=== PATIENT | male | born 1945 | race Caucasian/White ===

== ENCOUNTER → 2016-05-29 | Outpatient (CLI) | payer OTHER ==
--- NOTE | 2016-05-29 10:20 | MR ---
EXAMINATION TYPE: MR cervical spine wo/w con DATE OF EXAM: 05/29/2016 9:11 AM COMPARISON: NONE HISTORY: cervicalgia, numbness back of head TECHNIQUE: Multiplanar, multisequence images of the cervical spine were acquired utilizing 15 mL intravenous Mul tiHance gadolinium contrast. Diffusion weighted imaging was performed. There is reversal of the normal cervical lordosis extending from C2-3 through C5-6. C2-C3: No evidence for degenerative disc disease. No disc bulge/herniation or protrusion. No Canal stenosis. Foramina are patent bilaterally. C3-C4: Moderate disc desiccation. Posterior disc bulge noted. No evidence for herniation or central s tenosis. Degenerative change of the cervical apophyseal joints resulting in mild bilateral foraminal encroachment. C4-C5: Moderate to severe disc desiccation. Posterior disc bulge with encapsulating spur resulting in mild central stenosis. Bilateral foraminal encroachment identified. C5-C6: Moderate to severe disc desiccation. Posterior disc bulge with encapsulating spur resulting in moderate central stenosis. Bilateral foraminal encroachment identified. C6-C7: Moderate to severe disc desiccation. Posterior disc bulge with encapsulating spur resulting in moderate central stenosis. Bilateral foraminal encroachment identified. C7-T1: No evidence for degenerative disc disease. No disc bulge/herniation or protrusion. No Canal stenosis. Foramina are patent bilaterally. Cervical segments are intact. No pathologic enhancement seen. Moderate ventral spondylosis. Cervical spinal cord is of normal signal. Craniovertebral junction relationships are within normal limits. IMPRESSION: 1. Multilevel degenerative disc disease. 2. Disc endplate complex resulting in central stenosis at C4-5, C5-6 and C6-7. Associated foraminal e ncroachment.
== END | disposition home or self-care (01) ==
LOC: RADMRIMAIN 07:43
PROVIDERS: ATTEND Physician Assistant Medical
DX: M48.02 Spinal stenosis, cervical region (principal); M50.30 Other cervical disc degeneration, unspecified cervical region
CPT/HCPCS: 72156; A9577

== ENCOUNTER 2019-01-10 11:47 | Day surgery (SDC) | payer OTHER ==
[2019-01-05 09:07] VITALS: BMI 23.1
[~2019-01-10 11:47] MED LIST: LACTATED RINGERS 1,000 ML IV SCH
[2019-01-10 12:20] VITALS: TEMP 97.6
[2019-01-10] MEDS ORDERED: PROPOFOL 10 MG/ML 20 ML VIAL IV ONE (13:32)
--- NOTE | 2019-01-10 14:12 | P.PCN ---
Date of Procedure: 01/10/19 Description of Procedure: BRIEF HISTORY: Patient is a 73-year-old pleasant male scheduled for an elective colonoscopy as a part of evaluation of altered bowel function. Patient reports altered bowel function over the past few months. He describes increased frequency of bowel movements as well as loose bowel movements and urgency with bowel movement. No blood per rectum or black tarry stools reported. Last colonoscopy 5 years ago significant for polyps. No family history of colon cancer. He does occasionally wake up and have bowel movements. PROCEDURE PERFORMED: Colonoscopy with polypectomy. PREOPERATIVE DIAGNOSIS: Altered bowel function, last colonoscopy 5 years ago and significant for polypectomy. ESTIMATED BLOOD LOSS: Minimal. IV sedation per Anesthesia. PROCEDURE: After informed consent was obtained, the patient, was brought into the endoscopy unit. IV sedation was administered by Anesthesia under continuous monitoring. Digital rectal examination was normal. Initially the Olympus CF-190 flexible video colonoscope was then inserted in the rectum, gradually advanced into the cecum without any difficulty. Careful examination was performed as the scope was gradually being withdrawn. Ileocecal valve and the appendiceal orifice were visualized and appeared normal. Prep was good with some liquid stool in the right colon which was lavaged. Mucosa of the cecum, ascending colon, transverse colon, descending colon, sigmoid colon, and rectum appeared normal. A few scattered left colonic diverticula noted. Retroflexion was performed in the rectum and no lesions were seen. The patient tolerated the procedure well. IMPRESSION: Mild sigmoid diverticulosis. Normal-appearing colon from rectum to cecum with random biopsies taken of the right and left colon to rule out microscopic colitis. RECOMMENDATIONS: Findings of this examination were discussed with the patient and his daughter. Okay to resume diet. Okay to resume medications and warfarin therapy. Await pathology from biopsies. Follow up in gastroenterology clinic as previously sc heduled. Repeat colonoscopy would be in 5 years for personal history of colon polyps and the patient is medically stable for repeat endoscopy at that time.
[2019-01-10 14:26] VITALS: BP 166/78; PULSE 79; RESP 18
== END 2019-01-10 14:40 | disposition home or self-care (01) ==
LOC: ORWHC2ENDO 11:47
PROVIDERS: ATTEND Internal Medicine
DX: K57.30 Diverticulosis of large intestine without perforation or abscess without bleeding (principal); I10 Essential (primary) hypertension; I48.91 Unspecified atrial fibrillation; G47.33 Obstructive sleep apnea (adult) (pediatric); J44.9 Chronic obstructive pulmonary disease, unspecified; F41.9 Anxiety disorder, unspecified; F32.9 Major depressive disorder, single episode, unspecified; Z80.0 Family history of malignant neoplasm of digestive organs; Z87.891 Personal history of nicotine dependence; Z79.01 Long term (current) use of anticoagulants; Z79.1 Long term (current) use of non-steroidal anti-inflammatories (NSAID); Z79.899 Other long term (current) drug therapy; Z79.51 Long term (current) use of inhaled steroids; Z98.890 Other specified postprocedural states; Z88.7 Allergy status to serum and vaccine; Z85.840 Personal history of malignant neoplasm of eye
CPT/HCPCS: 45380; 88305

== ENCOUNTER 2019-04-11 20:51 | Emergency (ER) | payer OTHER ==
[2019-04-11] MEDS ORDERED: SODIUM CHLORIDE 0.9% 1,000 ML IV STA (20:56)
--- NOTE | 2019-04-11 20:56 | ED ---
Syncope HPI - General Stated Complaint: Syncope Time Seen by Provider: 04/11/19 20:54 Source: RN notes reviewed, old records reviewed - History of Present Illness Initial Comments: This is a 73-year-old male, who presents today for evaluation regarding a syncopal event patient unsure of events surrounding syncopal episode 51 to the bathroom and then was found by EMS to be brought to the ER patient does drink daily and does admit to drinking TONIGHT states he was at the bar with his girlfriend when this event happened. Patient states he did drink some beer tonight denying any headache chest pain shortness with abdominal pain. Patient at this time states he has no complaints MD Complaint: loss of consciousness -: days(s) Prodromal Symptoms: none -: minutes(s) Witnessed: yes - by bystander, yes - by EMS Injuries Sustained Associated with Event: None Current Symptoms: back to baseline History: other (alcohol use disorder) Context: at rest Treatments Prior to Arrival: none - Related Data Home Medications Medication Instructions Recorded Confirmed Tamsulosin HCl [Flomax] 0.4 mg PO DAILY 03/30/15 01/05/19 Diltiazem HCl [Diltiazem 24Hr ER] 120 mg PO QAM 01/16/16 01/05/19 Warfarin [Coumadin] 2 mg PO HS 01/16/16 01/05/19 Albuterol Inhaler [Ventolin Hfa 1 - 2 puff INHALATION RT-Q6H PRN 01/05/19 01/05/19 Inhaler] Calcium Polycarbophil [Fibercon] 625 mg PO DAILY 01/05/19 01/05/19 Ibuprofen [Motrin] 600 mg PO Q8HR PRN 01/05/19 01/05/19 Ipratropium-Albuterol Nebulize 3 ml INHALATION RT-QID PRN 01/05/19 01/05/19 [Duoneb 0.5 mg-3 mg/3 ml Soln] hydrOXYzine HCL [Atarax] 25 mg PO DAILY 01/05/19 01/05/19 Previous Rx's Medication Instructions Recorded Lisinopril [Zestril] 5 mg PO DAILY #0 01/18/16 Budesonide/Formoterol Fumarate 1 puff IH BID #1 hfa.aer.ad 01/31/16 [Symbicort 160-4.5 Mcg Inhaler] Allergies Allergy/AdvReac Type Severity Reaction Status Date / Time pneumococcal vaccine Allergy Swelling Verified 01/10/19 12:11 AT SITE OF INJECTION Review of Systems ROS Statement: Those systems with pertinent positive or pertinent negative responses have been documented in the HPI. ROS Other: All systems not noted in ROS Statement are negative. 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 History of Any Multi-Drug Resistant Organisms: MRSA Date of last positivie culture/infection: 01/17/16 MDRO Source:: SHOULDER Past Surgical History: Heart Catheterization, Orthopedic Surgery Additional Past Surgical History / Comment(s): 6 R shoulder surgeries, 2 L shoulder surgeries, R eye surgery for cancer 01-17-12-enucleation and has prosthetic, colonoscopy, L eye cataract removal. Past Anesthesia/Blood Transfusion Reactions: No Reported Reaction Smoking Status: Former smoker - Past Family History Brother(s) History Unknown: Yes Family Medical History: Cancer Additional Family Medical History / Comment(s): esophageal, Mother Family Medical History: Renal Disease Additional Family Medical History / Comment(s): Mother at the age of 75yrs. General Exam General appearance: alert, in no apparent distress Head exam: Present: atraumatic, normocephalic, normal inspection Eye exam: Present: normal appearance, PERRL, EOMI. Absent: scleral icterus, conjunctival injection, periorbital swelling ENT exam: Present: normal exam, mucous membranes moist Neck exam: Present: normal inspection. Absent: tenderness, meningismus, lymphadenopathy Respiratory exam: Present: normal lung sounds bilaterally. Absent: respiratory distress, wheezes, rales, rhonchi, stridor Cardiovascular Exam: Present: regular rate, normal rhythm, normal heart sounds. Absent: systolic murmur, diastolic murmur, rubs, gallop, clicks GI/Abdominal exam: Present: soft, normal bowel sounds. Absent: distended, tenderness, guarding, rebound, rigid Extremities exam: Present: normal inspection, full ROM, normal capillary refill. Absent: tenderness, pedal edema, joint swelling, calf tenderness Back exam: Present: normal inspection Neurological exam: Present: alert, oriented X3, CN II-XII intact Psychiatric exam: Present: normal affect, normal mood Skin exam: Present: warm, dry, intact, normal color. Absent: rash Course Vital Signs 04/11/19 04/11/19 04/11/19 20:53 20:55 21:00 Temperature 97.5 F L Pulse Rate 53 L 60 Respiratory 18 17 Rate Blood Pressure 136/107 136/107 O2 Sat by Pulse 93 L 99 98 Oximetry 04/11/19 04/11/19 04/11/19 21:30 22:00 22:40 Temperature 97.5 F L Pulse Rate 43 L 56 L 66 Respiratory 18 16 20 Rate Blood Pressure 117/80 95/67 130/90 O2 Sat by Pulse 99 99 Oximetry - Reevaluation(s) Reevaluation #1: Medical record is reviewed Patient here in the ER is feeling better with rest and hydration. Before patient family to keep him for the syncopal event he states he thinks he does drink too much Alcohol tonight and would prefer discharged home EKG Findings - EKG Comments: EKG Findings:: EKG shows A. fib rate of 61, QRS 90, QTc 450 Medical Decision Making - Medical Decision Making 70 female presents to ER after having dinner with girlfriend and had a syncopal episode patient admits alcohol use today does appear dehydrated feels better here in the ER after some rest and some IV hydration. Patient prefer discharged home - Lab Data Result diagrams: 04/11/19 20:59 04/11/19 20:59 Lab Results 04/11/19 04/11/19 04/11/19 Range/Units 20:59 20:59 20:59 WBC 6.0 (3.8-10.6) k/uL RBC 4.42 (4.30-5.90) m/uL Hgb 14.5 (13.0-17.5) gm/dL Hct 42.8 (39.0-53.0) % MCV 97.0 (80.0-100.0) fL MCH 32.8 (25.0-35.0) pg MCHC 33.8 (31.0-37.0) g/dL RDW 12.7 (11.5-15.5) % Plt Count 153 (150-450) k/uL Neutrophils % 42 % Lymphocytes % 40 % Monocytes % 11 % Eosinophils % 2 % Basophils % 1 % Neutrophils # 2.5 (1.3-7.7) k/uL Lymphocytes # 2.4 (1.0-4.8) k/uL Monocytes # 0.7 (0-1.0) k/uL Eosinophils # 0.1 (0-0.7) k/uL Basophils # 0.0 (0-0.2) k/uL Sodium 129 L (137-145) mmol/L Potassium 5.2 H (3.5-5.1) mmol/L Chloride 96 L (98-107) mmol/L Carbon Dioxide 20 L (22-30) mmol/L Anion Gap 13 mmol/L BUN 17 (9-20) mg/dL Creatinine 0.67 (0.66-1.25) mg/dL Est GFR (CKD-EPI)AfAm >90 (>60 ml/min/1.73 sqM) Est GFR (CKD-EPI)NonAf >90 (>60 ml/min/1.73 sqM) Glucose 102 H (74-99) mg/dL POC Glucose (mg/dL) (75-99) mg/dL POC Glu German Professor ID Calcium 8.4 (8.4-10.2) mg/dL Phosphorus 3.9 (2.5-4.5) mg/dL Magnesium 2.0 (1.6-2.3) mg/dL Total Bilirubin 1.1 (0.2-1.3) mg/dL AST 57 (17-59) U/L ALT 53 H (4-49) U/L Alkaline Phosphatase 89 (38-126) U/L Troponin I 0.013 (0.000-0.034) ng/mL NT-Pro-B Natriuret Pep pg/mL Total Protein 7.5 (6.3-8.2) g/dL Albumin 3.9 (3.5-5.0) g/dL Urine Color Urine Appearance (Clear) Urine pH (5.0-8.0) Ur Specific [place] (1.001-1.035) Urine Protein (Negative) Urine Glucose (UA) (Negative) Urine Ketones (Negative) Urine Blood (Negative) Urine Nitrite (Negative) Urine Bilirubin (Negative) Urine Urobilinogen (<2.0) mg/dL Ur Leukocyte Esterase (Negative) 04/11/19 04/11/19 04/11/19 Range/Units 20:59 21:00 21:01 WBC (3.8-10.6) k/uL RBC (4.30-5.90) m/uL Hgb (13.0-17.5) gm/dL Hct (39.0-53.0) % MCV (80.0-100.0) fL MCH (25.0-35.0) pg MCHC (31.0-37.0) g/dL RDW (11.5-15.5) % Plt Count (150-450) k/uL Neutrophils % % Lymphocytes % % Monocytes % % Eosinophils % % Basophils % % Neutrophils # (1.3-7.7) k/uL Lymphocytes # (1.0-4.8) k/uL Monocytes # (0-1.0) k/uL Eosinophils # (0-0.7) k/uL Basophils # (0-0.2) k/uL Sodium (137-145) mmol/L Potassium (3.5-5.1) mmol/L Chloride (98-107) mmol/L Carbon Dioxide (22-30) mmol/L Anion Gap mmol/L BUN (9-20) mg/dL Creatinine (0.66-1.25) mg/dL Est GFR (CKD-EPI)AfAm (>60 ml/min/1.73 sqM) Est GFR (CKD-EPI)NonAf (>60 ml/min/1.73 sqM) Glucose (74-99) mg/dL POC Glucose (mg/dL) 101 H (75-99) mg/dL POC Glu German Professor ID Ceci Nevarez Calcium (8.4-10.2) mg/dL Phosphorus (2.5-4.5) mg/dL Magnesium (1.6-2.3) mg/dL Total Bilirubin (0.2-1.3) mg/dL AST (17-59) U/L ALT (4-49) U/L Alkaline Phosphatase (38-126) U/L Troponin I (0.000-0.034) ng/mL NT-Pro-B Natriuret Pep 448 pg/mL Total Protein (6.3-8.2) g/dL Albumin (3.5-5.0) g/dL Urine Color Yellow Urine Appearance Clear (Clear) Urine pH 6.0 (5.0-8.0) Ur Specific [place] 1.021 (1.001-1.035) Urine Protein Trace H (Negative) Urine Glucose (UA) Negative (Negative) Urine Ketones Trace H (Negative) Urine Blood Negative (Negative) Urine Nitrite Negative (Negative) Urine Bilirubin Negative (Negative) Urine Urobilinogen 2.0 (<2.0) mg/dL Ur Leukocyte Esterase Negative (Negative) - Radiology Data Radiology results: report reviewed (CT brain C-spine and chest and pelvis x-ray negative for traumatic disease), image reviewed Disposition Clinical Impression: Syncope, Alcohol use, Dehydration Disposition: HOME SELF-CARE Condition: Good Instructions (If sedation given, give patient instructions): Dehydration (ED), Syncope (ED) Is patient prescribed a controlled substance at d/c from ED?: No Referrals: [facility],Clinic [Primary Care Provider] - 1-2 days
[2019-04-11 21:03] VITALS: TEMP 97.5
[2019-04-11 21:03] LABS: Glucose,Whole Blood 101 mg/dL (75-99)
[2019-04-11 21:22] LABS: Basophils % (A) 1 %; Eosinophils # (A) 0.1 k/uL (0-0.7); Eosinophils % (A) 2 %; HCT 42.8 % (39.0-53.0); HGB 14.5 gm/dL (13.0-17.5); Lymphocytes # (A) 2.4 k/uL (1.0-4.8); Lymphocytes % (A) 40 %; MCH 32.8 pg (25.0-35.0); MCHC 33.8 g/dL (31.0-37.0); Mean Platelet Volume 9.3; Monocytes # (A) 0.7 k/uL (0-1.0); Monocytes % (A) 11 %; Neutrophils # (A) 2.5 k/uL (1.3-7.7); Neutrophils % (A) 42 %; Platelet Count 153 k/uL (150-450); RBC 4.42 m/uL (4.30-5.90); RDW 12.7 % (11.5-15.5)
[2019-04-11 21:24] LABS: Appearance,Urine Clear (Clear); Bilirubin,Urine Negative (Negative); Blood,Urine Negative (Negative); Color,Urine Yellow; Glucose,Urine (UA) Negative (Negative); Ketones,Urine Trace (Negative); Leukocyte Esterase,Urine Negative (Negative); Nitrite,Urine Negative (Negative); Protein,Urine Trace (Negative); Specific Gravity,Urine 1.021 (1.001-1.035)
[2019-04-11 21:26] LABS: ALT 53 U/L (4-49); AST 57 U/L (17-59); African American GFR (CKD) >90 (>60 ml/min/1.73 sqM); Albumin 3.9 g/dL (3.5-5.0); Alkaline Phosphatase 89 U/L (38-126); Anion Gap 13 mmol/L; Blood Urea Nitrogen 17 mg/dL (9-20); Calcium 8.4 mg/dL (8.4-10.2); Carbon Dioxide 20 mmol/L (22-30); Chloride 96 mmol/L (98-107); Glucose 102 mg/dL (74-99); Non-African American GFR(CKD) >90 (>60 ml/min/1.73 sqM); Phosphorus 3.9 mg/dL (2.5-4.5); Sodium 129 mmol/L (137-145); Total Bilirubin 1.1 mg/dL (0.2-1.3); Total Protein 7.5 g/dL (6.3-8.2)
[2019-04-11 21:44] LABS: Potassium 5.2 mmol/L (3.5-5.1)
--- NOTE | 2019-04-11 22:01 | CT ---
EXAMINATION TYPE: CT brain ireneine wo con DATE OF EXAM: 04/11/2019 COMPARISON: 03/31/2015 HISTORY: Fall, head injury. CT DLP: 1388.2 mGycm Automated exposure control for dose reduction was used. Multiple axial sections were obtained of the brain without contrast. Multiple axial sections were obt ained from the skull base to T1 vertebra without contrast. There is cerebral cortical atrophy. There is no mass effect nor midline shift. There is no sign of in tracranial hemorrhage. Calvarium is intact. There is degenerative disc space narrowing in the mid and lower cervical spine. There is straightenin g of the vertebra. Skull base is intact. Facet joints are intact. There is no evidence of cervical sp ine fracture. IMPRESSION: Spondylotic changes in the cervical spine. Cerebral atrophy. No acute intracranial abnormality. No change compared to old exam.
--- NOTE | 2019-04-11 22:03 | XR ---
EXAMINATION TYPE: XR chest 2V DATE OF EXAM: 04/11/2019 COMPARISON: 01/29/2016 HISTORY: Short of breath TECHNIQUE: FINDINGS: There is no heart failure nor confluent pneumonic infiltrate. Costophrenic angles are clear . There are chest leads. There is some arthritic changes in the right shoulder joint. IMPRESSION: No active cardiopulmonary disease. No change.
--- NOTE | 2019-04-11 22:04 | XR ---
EXAMINATION TYPE: XR pelvis AP view DATE OF EXAM: 04/11/2019 COMPARISON: 01/29/2016 HISTORY: Fall. Pain. TECHNIQUE: Single view FINDINGS: The pelvic ring is intact. Proximal femurs and hip joints are intact. There is acetabular m ild spurring. Sacroiliac joints appear intact. IMPRESSION: No acute abnormality of the pelvis. No fracture.
[2019-04-11 22:42] VITALS: BP 130/90; PULSE 66; RESP 20
== END 2019-04-11 22:49 | disposition home or self-care (01) ==
LOC: EC 20:51
DX: R55 Syncope and collapse (principal); E86.0 Dehydration; I10 Essential (primary) hypertension; I48.91 Unspecified atrial fibrillation; J44.9 Chronic obstructive pulmonary disease, unspecified; G47.30 Sleep apnea, unspecified; M19.90 Unspecified osteoarthritis, unspecified site; Z79.01 Long term (current) use of anticoagulants; Z79.51 Long term (current) use of inhaled steroids; Z79.1 Long term (current) use of non-steroidal anti-inflammatories (NSAID); Z79.899 Other long term (current) drug therapy; Z88.7 Allergy status to serum and vaccine; Z85.840 Personal history of malignant neoplasm of eye; Z99.89 Dependence on other enabling machines and devices; Z95.5 Presence of coronary angioplasty implant and graft; Z87.891 Personal history of nicotine dependence; Z97.0 Presence of artificial eye; Z86.14 Personal history of Methicillin resistant Staphylococcus aureus infection
CPT/HCPCS: 36415; 70450; 71046; 72125; 72170; 80053; 81003; 83735; 83880; 84100; 84484; 85025; 93005; 96360; 99285

== ENCOUNTER 2020-09-06 10:30 | Inpatient (IN) | payer OTHER, MEDICARE ==
[2020-09-06] MEDS ORDERED: PIPERACILLIN-TAZOBACTAM 3.375 GM in SODIUM CHLORIDE 0.9% 100 ML IVPB STA (10:57)
[2020-09-06] MEDS ORDERED: VANCOMYCIN IV PER PHARMACY 1 EACH MISC MISCELLANE PRN (10:57)
[2020-09-06] MEDS ORDERED: MORPHINE SULFATE 4 MG/ML SYRINGE IVP STA (11:00)
--- NOTE | 2020-09-06 11:01 | ED ---
General Adult HPI - General Chief complaint: Skin/Abscess/Foreign Body Stated complaint: Hand swelling Time Seen by Provider: 09/06/20 10:45 Source: patient Mode of arrival: ambulatory Limitations: no limitations - History of Present Illness Initial comments: 75-year-old male presents to the emergency room for a chief complaint of left hand pain and swelling. Patient reports over the past 3-4 days he has had redness and pain in the left hand. States that his skin is feeling on the left hand. She is starting to spread up his left arm. He has noticed it as well on his penis and scrotum. He is concerned it is starting in his right hand. Patient denies any new medications. He denies any new soaps, detergents, swollen glands, or any other chemicals. He denies fevers or chills.Patient has no other complaints at this time including shortness of breath, chest pain, abdominal pain, nausea or vomiting, headache, or visual changes. - Related Data Home Medications Medication Instructions Recorded Confirmed Tamsulosin HCl [Flomax] 0.4 mg PO DAILY 03/30/15 01/05/19 Diltiazem HCl [Diltiazem 24Hr ER] 120 mg PO QAM 01/16/16 01/05/19 Warfarin [Coumadin] 2 mg PO HS 01/16/16 01/05/19 Albuterol Inhaler (Mhu) [Ventolin 1 - 2 puff INHALATION RT-Q6H PRN 01/05/19 01/05/19 Hfa Inhaler] Ibuprofen [Motrin] 600 mg PO Q8HR PRN 01/05/19 01/05/19 Ipratropium-Albuterol Nebulize 3 ml INHALATION RT-QID PRN 01/05/19 01/05/19 [Duoneb 0.5 mg-3 mg/3 ml Soln] calcium polycarbophiL [Fibercon] 625 mg PO DAILY 01/05/19 01/05/19 hydrOXYzine HCL [Atarax] 25 mg PO DAILY 01/05/19 01/05/19 Previous Rx's Medication Instructions Recorded lisinopriL [Zestril] 5 mg PO DAILY #0 01/18/16 Budesonide/Formoterol Fumarate 1 puff IH BID #1 hfa.aer.ad 01/31/16 [Symbicort 160-4.5 Mcg Inhaler] Allergies Allergy/AdvReac Type Severity Reaction Status Date / Time pneumococcal vaccine Allergy Swelling Verified 09/06/20 11:44 AT SITE OF INJECTION Review of Systems ROS Statement: Those systems with pertinent positive or pertinent negative responses have been documented in the HPI. ROS Other: All systems not noted in ROS Statement are negative. 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 History of Any Multi-Drug Resistant Organisms: MRSA Date of last positivie culture/infection: 01/17/16 MDRO Source:: left SHOULDER Past Surgical History: Heart Catheterization, Orthopedic Surgery Additional Past Surgical History / Comment(s): 6 R shoulder surgeries, 2 L shoulder surgeries, R eye surgery for cancer 01-17-12-enucleation and has prosthetic, colonoscopy, L eye cataract removal. Past Anesthesia/Blood Transfusion Reactions: No Reported Reaction Past Psychological History: Anxiety, Depression Smoking Status: Current every day smoker Past Alcohol Use History: Daily, Heavy Past Drug Use History: Marijuana - Past Family History Brother(s) History Unknown: Yes Family Medical History: Cancer Additional Family Medical History / Comment(s): esophageal, Mother Family Medical History: Renal Disease Additional Family Medical History / Comment(s): Mother at the age of 75yrs. General Exam Limitations: no limitations General appearance: alert, in no apparent distress Head exam: Present: atraumatic, normocephalic, normal inspection Eye exam: Present: normal appearance, PERRL, EOMI. Absent: scleral icterus, conjunctival injection, periorbital swelling ENT exam: Present: normal exam, mucous membranes moist Neck exam: Present: normal inspection, full ROM. Absent: tenderness, meningismus, lymphadenopathy Respiratory exam: Present: normal lung sounds bilaterally. Absent: respiratory distress, wheezes, rales, rhonchi, stridor Cardiovascular Exam: Present: regular rate, normal rhythm, normal heart sounds. Absent: systolic murmur, diastolic murmur, rubs, gallop, clicks exam: Present: scrotal swelling (erythema and edema of scrotum and penis) Extremities exam: Present: normal capillary refill (cap refill < 2 seconds, DP pulse 2+), other (L hand edematous and erythematous, spreading up the forearm to about mid forearm. patient able to flex and extend all digits, unable to completely make a fist secondary to pain) Course Vital Signs 09/06/20 09/06/20 10:33 11:45 Temperature 97.8 F 98.1 F Pulse Rate 84 78 Respiratory 18 18 Rate Blood Pressure 163/89 158/110 O2 Sat by Pulse 98 97 Oximetry Medical Decision Making - Medical Decision Making Vitals are stable. Patient does have erythema and edema of the left hand with ascending cellulitis of the left forearm. He also has erythema and edema of the penis and scrotum. Return evaluation was initiated. CBC CMP unremarkable. CRP is normal INR is therapeutic at 2.8. Lactic acid 1.6. Blood cultures pending. Dr. Tao also evaluated patient, as patient was started on Zosyn and Levaquin. I did discuss this case with Dr. Harry who does accept the admission. Does request ID consult be ordered - Lab Data Result diagrams: 09/06/20 11:03 09/06/20 11:03 Lab Results 09/06/20 09/06/20 09/06/20 Range/Units 11:03 11:03 11:03 WBC 6.2 (3.8-10.6) k/uL RBC 4.73 (4.30-5.90) m/uL Hgb 15.6 (13.0-17.5) gm/dL Hct 45.3 (39.0-53.0) % MCV 95.8 (80.0-100.0) fL MCH 32.9 (25.0-35.0) pg MCHC 34.4 (31.0-37.0) g/dL RDW 12.7 (11.5-15.5) % Plt Count 181 (150-450) k/uL MPV 9.4 Neutrophils % 64 % Lymphocytes % 22 % Monocytes % 8 % Eosinophils % 4 % Basophils % 1 % Neutrophils # 3.9 (1.3-7.7) k/uL Lymphocytes # 1.4 (1.0-4.8) k/uL Monocytes # 0.5 (0-1.0) k/uL Eosinophils # 0.2 (0-0.7) k/uL Basophils # 0.0 (0-0.2) k/uL PT 27.2 H (9.0-12.0) sec INR 2.8 H (<1.2) APTT 34.1 H (22.0-30.0) sec Sodium 131 L (137-145) mmol/L Potassium 4.3 (3.5-5.1) mmol/L Chloride 100 (98-107) mmol/L Carbon Dioxide 21 L (22-30) mmol/L Anion Gap 10 mmol/L BUN 11 (9-20) mg/dL Creatinine 0.60 L (0.66-1.25) mg/dL Est GFR (CKD-EPI)AfAm >90 (>60 ml/min/1.73 sqM) Est GFR (CKD-EPI)NonAf >90 (>60 ml/min/1.73 sqM) Glucose 106 H (74-99) mg/dL Plasma Lactic Acid Deandre (0.7-2.0) mmol/L Calcium 9.1 (8.4-10.2) mg/dL Total Bilirubin 1.1 (0.2-1.3) mg/dL AST 36 (17-59) U/L ALT 25 (4-49) U/L Alkaline Phosphatase 152 H (38-126) U/L C-Reactive Protein 0.9 (<1.0) mg/dL Total Protein 7.2 (6.3-8.2) g/dL Albumin 3.8 (3.5-5.0) g/dL 09/06/20 Range/Units 11:03 WBC (3.8-10.6) k/uL RBC (4.30-5.90) m/uL Hgb (13.0-17.5) gm/dL Hct (39.0-53.0) % MCV (80.0-100.0) fL MCH (25.0-35.0) pg MCHC (31.0-37.0) g/dL RDW (11.5-15.5) % Plt Count (150-450) k/uL MPV Neutrophils % % Lymphocytes % % Monocytes % % Eosinophils % % Basophils % % Neutrophils # (1.3-7.7) k/uL Lymphocytes # (1.0-4.8) k/uL Monocytes # (0-1.0) k/uL Eosinophils # (0-0.7) k/uL Basophils # (0-0.2) k/uL PT (9.0-12.0) sec INR (<1.2) APTT (22.0-30.0) sec Sodium (137-145) mmol/L Potassium (3.5-5.1) mmol/L Chloride (98-107) mmol/L Carbon Dioxide (22-30) mmol/L Anion Gap mmol/L BUN (9-20) mg/dL Creatinine (0.66-1.25) mg/dL Est GFR (CKD-EPI)AfAm (>60 ml/min/1.73 sqM) Est GFR (CKD-EPI)NonAf (>60 ml/min/1.73 sqM) Glucose (74-99) mg/dL Plasma Lactic Acid Deandre 1.6 (0.7-2.0) mmol/L Calcium (8.4-10.2) mg/dL Total Bilirubin (0.2-1.3) mg/dL AST (17-59) U/L ALT (4-49) U/L Alkaline Phosphatase (38-126) U/L C-Reactive Protein (<1.0) mg/dL Total Protein (6.3-8.2) g/dL Albumin (3.5-5.0) g/dL Disposition Clinical Impression: Cellulitis, Rash and nonspecific skin eruption Disposition: ADMITTED IP TO THIS HOSP Is patient prescribed a controlled substance at d/c from ED?: No Referrals: [facility],Clinic [Primary Care Provider] - 1-2 days Time of Disposition: 13:04
[2020-09-06] MEDS ORDERED: VANCOMYCIN 1,500 MG in SODIUM CHLORIDE 0.9% 250 ML IVPB STA (11:02)
[2020-09-06] MEDS ORDERED: VANCOMYCIN 1,500 MG in SODIUM CHLORIDE 0.9% 250 ML IVPB SCH (11:15)
[2020-09-06 11:31] LABS: Basophils % (A) 1 %; Eosinophils # (A) 0.2 k/uL (0-0.7); Eosinophils % (A) 4 %; HCT 45.3 % (39.0-53.0); HGB 15.6 gm/dL (13.0-17.5); Lymphocytes # (A) 1.4 k/uL (1.0-4.8); Lymphocytes % (A) 22 %; MCH 32.9 pg (25.0-35.0); MCHC 34.4 g/dL (31.0-37.0); MCV 95.8 fL (80.0-100.0); Mean Platelet Volume 9.4; Monocytes # (A) 0.5 k/uL (0-1.0); Monocytes % (A) 8 %; Neutrophils # (A) 3.9 k/uL (1.3-7.7); Neutrophils % (A) 64 %; Platelet Count 181 k/uL (150-450); RBC 4.73 m/uL (4.30-5.90); RDW 12.7 % (11.5-15.5); WBC 6.2 k/uL (3.8-10.6)
[2020-09-06 11:38] LABS: INR 2.8 (<1.2); Partial Thromboplastin Time 34.1 sec (22.0-30.0); Prothrombin Time 27.2 sec (9.0-12.0)
[2020-09-06] MEDS: SODIUM CHLORIDE 0.9% 500 ML 500 ML IV SCH ×2 (11:43→11:49)
[2020-09-06 11:51] LABS: ALT 25 U/L (4-49); AST 36 U/L (17-59); African American GFR (CKD) >90 (>60 ml/min/1.73 sqM); Albumin 3.8 g/dL (3.5-5.0); Alkaline Phosphatase 152 U/L (38-126); Anion Gap 10 mmol/L; Blood Urea Nitrogen 11 mg/dL (9-20); C Reactive Protein 0.9 mg/dL (<1.0); Calcium 9.1 mg/dL (8.4-10.2); Carbon Dioxide 21 mmol/L (22-30); Chloride 100 mmol/L (98-107); Glucose 106 mg/dL (74-99); Non-African American GFR(CKD) >90 (>60 ml/min/1.73 sqM); Potassium 4.3 mmol/L (3.5-5.1); Sodium 131 mmol/L (137-145); Total Bilirubin 1.1 mg/dL (0.2-1.3); Total Protein 7.2 g/dL (6.3-8.2)
[2020-09-06] MEDS ORDERED: NALOXONE 0.4 MG/ML 1 ML VIAL IV PRN (13:01)
--- NOTE | 2020-09-06 14:24 | P.HPIM ---
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 No abdominal pain or diarrhea. No vomiting. He can eat and breathe normally. No fever. He smokes about 1 pack per day, and he drinks 2-3 beers every day Vitas looks stable, blood pressure 155/96. Patient is afebrile CBC, BMP and liver enzymes are unremarkable, except for mild hyponatremia 131, INR is 2.8 In the emergency room cellulitis of the hand is suspected and patient was started on IV vancomycin, and dose of Zosyn . Also received normal saline at 1 30 mL/h Infectious disease team were consulted from emergency room Review of Systems CONSTITUTIONAL: No fever, no malaise, no fatigue. HEENT: No recent visual problems or hearing problems. Denied any sore throat. CARDIOVASCULAR: No orthopnea, PND, no palpitations, no syncope. PULMONARY: No shortness of breath, no cough, no hemoptysis. GASTROINTESTINAL: No diarrhea, no nausea, no vomiting, no abdominal pain. Normoactive bowel sounds. NEUROLOGICAL: No headaches, no weakness, no numbness. HEMATOLOGICAL: Denies any bleeding or petechiae. GENITOURINARY: Denies any burning micturition, frequency, or urgency. MUSCULOSKELETAL/RHEUMATOLOGICAL: Denies any joint pain, swelling, or any muscle pain. ENDOCRINE: Denies any polyuria or polydipsia. 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 History of Any Multi-Drug Resistant Organisms: MRSA Date of last positivie culture/infection: 01/17/16 MDRO Source:: left SHOULDER Past Surgical History: Heart Catheterization, Orthopedic Surgery Additional Past Surgical History / Comment(s): 6 R shoulder surgeries, 2 L shoulder surgeries, R eye surgery for cancer 01-17-12-enucleation and has prosthetic, colonoscopy, L eye cataract removal. Past Anesthesia/Blood Transfusion Reactions: No Reported Reaction Past Psychological History: Anxiety, Depression Smoking Status: Current every day smoker Past Alcohol Use History: Daily, Heavy Past Drug Use History: Marijuana - Past Family History Brother(s) History Unknown: Yes Family Medical History: Cancer Additional Family Medical History / Comment(s): esophageal, Mother Family Medical History: Renal Disease Additional Family Medical History / Comment(s): Mother at the age of 75yrs. Medications and Allergies Home Medications Medication Instructions Recorded Confirmed Type Tamsulosin HCl [Flomax] 0.4 mg PO DAILY 03/30/15 09/06/20 History Diltiazem HCl [Diltiazem 24Hr ER] 120 mg PO DAILY 01/16/16 09/06/20 History Warfarin [Coumadin] 2 mg PO HS 01/16/16 09/06/20 History Ibuprofen [Motrin] 600 mg PO Q8HR PRN 01/05/19 09/06/20 History hydrOXYzine HCL [Atarax] 25 mg PO HS 01/05/19 09/06/20 History Albuterol Sulfate [Ventolin HFA] 1 - 2 puff INHALATION Q6H PRN 09/06/20 09/06/20 History Betamethasone Dipropionate 1 applic TOPICAL DAILY 09/06/20 09/06/20 History [Diprolene AF 0.05% Cream] lisinopriL [Zestril] 10 mg PO DAILY 09/06/20 09/06/20 History Allergies Allergy/AdvReac Type Severity Reaction Status Date / Time pneumococcal vaccine Allergy Swelling Verified 09/06/20 13:30 AT SITE OF INJECTION Physical Exam Vitals: Vital Signs Temp Pulse Resp BP Pulse Ox 09/06/20 13:28 69 18 155/96 96 09/06/20 13:00 65 18 126/62 96 09/06/20 11:45 98.1 F 78 18 158/110 97 09/06/20 10:33 97.8 F 84 18 163/89 98 Intake and Output 09/05/20 09/06/20 09/06/20 22:59 06:59 14:59 Other: Weight 81.647 kg GENERAL: The patient is alert and oriented x3, not in any acute distress. Well developed, well nourished. HEENT: Pupils are round and equally reacting to light. EOMI. No scleral icterus. No conjunctival pallor. Normocephalic, atraumatic. No pharyngeal erythema. No thyromegaly. CARDIOVASCULAR: S1 and S2 present. No murmurs, rubs, or gallops. PULMONARY: Chest is clear to auscultation, no wheezing or crackles. ABDOMEN: Soft, nontender, nondistended, normoactive bowel sounds. No palpable organomegaly. MUSCULOSKELETAL: No joint swelling or deformity. EXTREMITIES: No cyanosis, clubbing, or pedal edema. NEUROLOGICAL: Gross neurological examination did not reveal any focal deficits. SKIN:No petechiae. as below -Bilateral hand erythema, swelling and a scale and with some superficial cracks, left side extending into the distal forearm. -Mouth and lip erythema - penile swelling, erythema with scant distal yellow discharge. swelling and erythema extending into lower suprapubic abdomen Results CBC & Chem 7: 09/06/20 11:03 09/06/20 11:03 Labs: Abnormal Lab Results - Last 24 Hours (Table) 09/06/20 09/06/20 Range/Units 11:03 11:03 PT 27.2 H (9.0-12.0) sec INR 2.8 H (<1.2) APTT 34.1 H (22.0-30.0) sec Sodium 131 L (137-145) mmol/L Carbon Dioxide 21 L (22-30) mmol/L Creatinine 0.60 L (0.66-1.25) mg/dL Glucose 106 H (74-99) mg/dL Alkaline Phosphatase 152 H (38-126) U/L Assessment and Plan Assessment: Bilateral hand erythema associated with mild erythema, genital and penile erythe ma and swelling, lower abdominal erythema, possible dermatitis, with possible superimposed cellulitis for example of the left hand Nicotine dependence Alcohol abuse at-risk of fall, withdrawal Hypertension Chronic atrial fibrillation on Coumadin History of osteoarthritis Apnea on CPAP/BiPAP He not in acute exacerbation 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 Continue with antibiotics per infectious disease team Also we'll start the patient on steroids for possible dermatitis, nonspecific. Wound care consult. Also will try to get wound cultures from the hands and genital area Pain management Gentle hydration Labs and medication were reviewed.. Continue same treatment. Continue with symptomatic treatment. Resume home medication. Monitor lytes and vitals. DVT and GI prophylaxis. Further recommendations depends on the clinical course of the patient DVT prophylaxis: on Coumadin GI Prophylaxis: Pepcid PT/OT: Pending Prognosis is guarded
[2020-09-06] MEDS: MORPHINE SULFATE 4 MG/ML SYRINGE IV PRN ×3 (15:48→23:59)
[2020-09-06] MEDS: SODIUM CHLORIDE 0.9% 1,000 ML IV SCH ×2 (15:50→23:20)
[2020-09-06] MEDS: HYDROcodone/APAP 5-325MG 1 EACH TAB PO PRN ×2 (16:41→23:19)
[2020-09-06] MEDS: FLUCONAZOLE 100 MG TAB PO SCH (18:26)
[2020-09-06] MEDS: WARFARIN 2 MG TAB PO SCH (18:27)
[2020-09-06] MEDS: methylPREDNISolone SOD SUCCI 125 MG/2 ML VIAL IV SCH ×2 (18:31→23:18)
[2020-09-06] MEDS: VANCOMYCIN 1,250 MG in SODIUM CHLORIDE 0.9% 250 ML IVPB SCH (20:31)
[2020-09-07] MEDS: MORPHINE SULFATE 4 MG/ML SYRINGE IV PRN ×4 (03:46→19:25)
[2020-09-07] MEDS: VANCOMYCIN 1,250 MG in SODIUM CHLORIDE 0.9% 250 ML IVPB SCH ×3 (03:52→21:32)
[2020-09-07] MEDS: methylPREDNISolone SOD SUCCI 125 MG/2 ML VIAL IV SCH ×2 (05:07→11:31)
[2020-09-07] MEDS: HYDROcodone/APAP 5-325MG 1 EACH TAB PO PRN ×3 (05:07→16:56)
[2020-09-07] MEDS: SODIUM CHLORIDE 0.9% 1,000 ML IV SCH ×2 (05:08→14:58)
--- NOTE | 2020-09-07 07:39 | P.CONS ---
History of Present Illness - Reason for Consult Consult date: 09/06/20 Left hand abscess and cellulitis Requesting physician: José Miguel E Sheet - Chief Complaint Left hand pain and swelling 4 days - History of Present Illness Patient is a 75-year-old male presenting to the ER at [facility] for evaluation of left hand pain and swelling patient mention of the last 3 to 4 days he has noticed to have decreasing swelling and redness and cracking of his left hand skin patient been complaining of pain to the left hand to be more of a sharp and burning intensity is about 6-7 out of 10 and no radiation patient also noted to have some involvement of his right hand as well as involvement of the penoscrotal area and lower abdominal wall patient has been working outside however denies use of any chemicals or detergents with the symptom the patient was evaluated by ER physician on arrival to the ER patient was afebrile patient did have a normal white count kidney function was normal patient was started on Solu-Medrol vancomycin infectious disease was consulted for further management Review of Systems Positive point has been mentioned in the HPI rest of the systems are negative Past Medical History Past Medical History: Atrial Fibrillation, Cancer, Eye Disorder, Hypertension, Osteoarthritis (OA), Sleep Apnea/CPAP/BIPAP Additional Past Medical History / Comment(s): COPD, , history of right eye cancer 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 History of Any Multi-Drug Resistant Organisms: MRSA Year Discovered:: 01/17/16 MDRO Source:: left SHOULDER Past Surgical History: Heart Catheterization, Orthopedic Surgery Additional Past Surgical History / Comment(s): 6 R shoulder surgeries, 2 L shoulder surgeries, R eye surgery for cancer 01-17-12-enucleation and has prosthetic, colonoscopy, L eye cataract removal. Past Anesthesia/Blood Transfusion Reactions: No Reported Reaction Past Psychological History: Anxiety, Depression Smoking Status: Current every day smoker Past Alcohol Use History: Daily, Heavy Past Drug Use History: Marijuana - Past Family History Brother(s) History Unknown: Yes Family Medical History: Cancer Additional Family Medical History / Comment(s): esophageal, Mother Family Medical History: Renal Disease Additional Family Medical History / Comment(s): Mother at the age of 75yrs. Medications and Allergies Home Medications Medication Instructions Recorded Confirmed Type Tamsulosin HCl [Flomax] 0.4 mg PO DAILY 03/30/15 09/06/20 History Diltiazem HCl [Diltiazem 24Hr ER] 120 mg PO DAILY 01/16/16 09/06/20 History Warfarin [Coumadin] 2 mg PO HS 01/16/16 09/06/20 History Ibuprofen [Motrin] 600 mg PO Q8HR PRN 01/05/19 09/06/20 History hydrOXYzine HCL [Atarax] 25 mg PO HS 01/05/19 09/06/20 History Albuterol Sulfate [Ventolin HFA] 1 - 2 puff INHALATION Q6H PRN 09/06/20 09/06/20 History Betamethasone Dipropionate 1 applic TOPICAL DAILY 09/06/20 09/06/20 History [Diprolene AF 0.05% Cream] lisinopriL [Zestril] 10 mg PO DAILY 09/06/20 09/06/20 History Allergies Allergy/AdvReac Type Severity Reaction Status Date / Time pneumococcal vaccine Allergy Swelling Verified 09/06/20 13:30 AT SITE OF INJECTION Physical Exam Vitals: Vital Signs Temp Pulse Resp BP Pulse Ox 09/06/20 14:44 88 18 141/83 96 09/06/20 13:28 69 18 155/96 96 09/06/20 11:45 98.1 F 78 18 158/110 97 09/06/20 10:33 97.8 F 84 18 163/89 98 Intake and Output 09/06/20 09/06/20 09/06/20 06:59 14:59 22:59 Other: Weight 81.647 kg GENERAL DESCRIPTION: An elderly male lying in bed, no distress. No tachypnea or accessory muscle of respiration use. HEENT: Shows Pallor , no scleral icterus. Oral mucous membrane is dry. No pharyngeal erythema or thrush NECK: Trachea central, no thyromegaly. LUNGS: Unlabored breathing. Clear to auscultation anteriorly. No wheeze or crackle. HEART: S1, S2, regular rate and rhythm. No loud murmur ABDOMEN: Soft, no tenderness , guarding or rigidity, no organomegaly EXTREMITIES: No edema of feet. left hand with dry cracky skin , erythema of the lower abd wall as well his genitalia SKIN: No rash, no masses palpable. NEUROLOGICAL: The patient is awake, alert, oriented x3, mood and affect normal. Results CBC & Chem 7: 09/06/20 11:03 09/06/20 11:03 Labs: Abnormal Lab Results - Last 24 Hours (Table) 09/06/20 09/06/20 Range/Units 11:03 11:03 PT 27.2 H (9.0-12.0) sec INR 2.8 H (<1.2) APTT 34.1 H (22.0-30.0) sec Sodium 131 L (137-145) mmol/L Carbon Dioxide 21 L (22-30) mmol/L Creatinine 0.60 L (0.66-1.25) mg/dL Glucose 106 H (74-99) mg/dL Alkaline Phosphatase 152 H (38-126) U/L Assessment and Plan Assessment: 1-patient with left hand fungal dermatitis versus chemical dermatitis but no evidence of any secondary bacterial cellulitis 2-extensive cutaneous candidiasis of the lower abdominal wall as well as groin area involving the genitalia (1) Fungal dermatitis Current Visit: Yes Status: Acute Code(s): B36.9 - SUPERFICIAL MYCOSIS, UNSPECIFIED SNOMED Code(s): 88449886 Plan: 1-we will start the patient on Diflucan 200 g p.o. daily 2-nystatin cream to the bilateral hand and lower abdominal wall 3-nystatin powder to bilateral groin area We will follow on clinical condition and cultures to further adjust medication if needed Thank you for this consultation we will follow the patient along with you Time with Patient: Greater than 30
[2020-09-07] MEDS: DILTIAZEM CD 120 MG CAP.ER.24H PO SCH (07:55)
[2020-09-07] MEDS: lisinopriL 10 MG TAB PO SCH (07:55)
[2020-09-07] MEDS: TAMSULOSIN 0.4 MG CAP.ER.24H PO SCH (07:55)
[2020-09-07] MEDS: FLUCONAZOLE 100 MG TAB PO SCH (07:56)
[2020-09-07] MEDS: NYSTATIN 100,000UNIT/GM CREAM 30 GM TUBE TOPICAL SCH ×3 (08:26→21:32)
[2020-09-07] MEDS: NYSTATIN 100,000 UNIT/GM POWD 15 GM TOPICAL SCH ×3 (08:26→21:32)
[2020-09-07 10:58] LABS: INR 2.67 (0.90-1.11); Prothrombin Time 27.3 sec (9.9-11.9)
[2020-09-07 12:33] LABS: Basophils # (A) 0.01 X 10*3/uL (0.00-0.10); Basophils % (A) 0.2 %; Eosinophils # (A) 0 X 10*3/uL (0.04-0.35); Eosinophils % (A) 0 %; HCT 39.3 % (39.6-50.0); HGB 13.3 g/dL (13.0-17.0); Lymphocytes # (A) 0.76 X 10*3/uL (0.90-5.00); Lymphocytes % (A) 18.9 %; MCHC 33.8 g/dL (32.0-37.0); MCV 94.5 fL (80.0-97.0); Mean Platelet Volume 12.4 fL (9.5-12.2); Monocytes # (A) 0.09 X 10*3/uL (0.20-1.00); Monocytes % (A) 2.2 %; Neutrophils # (A) 3.16 X 10*3/uL (1.80-7.70); Neutrophils % (A) 78.5 %; Platelet Count 175 X 10*3/uL (140-440); RBC 4.16 X 10*6/uL (4.40-5.60); RDW 12.9 % (11.5-14.5); WBC 4.03 X 10*3/uL (4.50-10.00)
[2020-09-07] MEDS ORDERED: PETROLAT,WHITE/LAN/8-HYDROXYQU 227 GM OINT TOPICAL SCH (13:00)
[2020-09-07 13:24] LABS: Anion Gap 9.6 mmol/L (4.00-12.00); BUN/Creat Ratio 18.33 Ratio (12.00-20.00); Calcium 8.4 mg/dL (8.7-10.3); Carbon Dioxide 20.4 mmol/L (21.6-31.8); Magnesium 1.4 mg/dL (1.5-2.4); Non-African American GFR(CKD) 98.4 (60.0-200.0); Potassium 4.7 mmol/L (3.5-5.5)
[2020-09-07] MEDS ORDERED: Magnesium Replacement Protocol 1 EACH MISC MISCELLANE PRN ×2 (14:26→15:16)
[2020-09-07] MEDS ORDERED: methylPREDNISolone SOD SUCCI 40 MG/ML 1 ML VIAL IV SCH (16:00)
[2020-09-07] MEDS: MAGNESIUM SULFATE-D5W PMX 1 GM in DEXTROSE/WATER 1 100ML.BAG IVPB SCH ×3 (16:46→20:08)
--- NOTE | 2020-09-07 17:29 | PN ---
PROGRESS NOTE DATE OF SERVICE: 09/07/2020. REASON FOR FOLLOWUP: Fungal dermatitis. INTERVAL HISTORY: The patient is afebrile. The patient left hand dryness persists, has slightly decreased to the right hand. The patient denies any chest pain, shortness of breath, cough, no abdominal pain or diarrhea. PHYSICAL EXAMINATION: Blood pressure 145/74, pulse of 60, temperature is 97.5, he is 97% on room air. General description is an elderly male lying in bed in no distress. Respiratory system: Unlabored breathing, clear to auscultation anteriorly. Heart S1, S2. Regular rate and rhythm. Abdomen soft, no tenderness. Examination of the left hand redness is improved. Dryness persists. The abdominal wall redness has improved. genitalia. Redness has decreased. LABS: Hemoglobin is 13.8, white count 4.03, creatinine 0.6. DIAGNOSTIC IMPRESSION AND PLAN: 1. This patient with extensive fungal dermatitis involving his left arm as well as genitalia. Patient is responding to the Diflucan and nystatin cream to continue. 2. The patient with groin area cutaneous candidiasis. Nystatin powder twice a day. No need for systemic antibiotic therapy and steroids should be cut back. MMODL / IJN: [id number] /
[2020-09-07] MEDS: WARFARIN 2 MG TAB PO SCH (18:22)
[2020-09-07] MEDS ORDERED: VANCOMYCIN IV PER PHARMACY 1 EACH MISC MISCELLANE PRN (19:58)
[2020-09-07] MEDS ORDERED: CALCIUM CARBONATE 500 MG CHEWABLE PO PRN (21:43)
[2020-09-07] MEDS: PANTOPRAZOLE 40 MG TABLET PO SCH (21:54)
--- NOTE | 2020-09-07 23:53 | P.PN ---
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 No abdominal pain or diarrhea. No vomiting. He can eat and breathe normally. No fever. He smokes about 1 pack per day, and he drinks 2-3 beers every day Vitas looks stable, blood pressure 155/96. Patient is afebrile CBC, BMP and liver enzymes are unremarkable, except for mild hyponatremia 131, INR is 2.8 In the emergency room cellulitis of the hand is suspected and patient was started on IV vancomycin, and dose of Zosyn . Also received normal saline at 1 30 mL/h Infectious disease team were consulted from emergency room 09/07/2020 Patient crash is less right and is more pink which is curing supervisor in color, not progressed and slightly regressed hysterectomy, patient looks improving Hemodynamically and labs looks stable, INR is 2.6 today. Discussed the case with ID team, most likely this is fungal cellulitis of the hand and genitalia and fluconazole is recommended However wound culture came back positive for staph, therefore we will keep IV vancomycin for now and follow up final culture results Degrees steroids to prednisone 20 mg daily Objective - Vital Signs Vital signs: Vital Signs Temp 97.5 F L 09/07/20 18:49 Pulse 71 09/07/20 18:49 Resp 16 09/07/20 18:49 BP 143/86 09/07/20 18:49 Pulse Ox 97 09/07/20 18:49 Intake & Output 09/07/20 09/07/20 09/08/20 06:59 18:59 06:59 Output Total 800 120 Balance -800 -120 Output: Urine 800 120 Other: Voiding Method Urinal # Voids 2 - Exam GENERAL: The patient is alert and oriented x3, not in any acute distress. Well developed, well nourished. HEENT: Pupils are round and equally reacting to light. EOMI. No scleral icterus. No conjunctival pallor. Normocephalic, atraumatic. No pharyngeal erythema. No thyromegaly. CARDIOVASCULAR: S1 and S2 present. No murmurs, rubs, or gallops. PULMONARY: Chest is clear to auscultation, no wheezing or crackles. ABDOMEN: Soft, nontender, nondistended, normoactive bowel sounds. No palpable organomegaly. MUSCULOSKELETAL: No joint swelling or deformity. EXTREMITIES: No cyanosis, clubbing, or pedal edema. NEUROLOGICAL: Gross neurological examination did not reveal any focal deficits. SKIN:No petechiae. as below -Bilateral hand erythema, swelling and a scale and with some superficial cracks, left side extending into the distal forearm. Improving -Mouth and lip erythema , improved - penile swelling, erythema with scant distal yellow discharge. swelling and erythema extending into lower suprapubic abdomen . Improving - Labs CBC & Chem 7: 09/07/20 04:44 09/07/20 04:44 Labs: Abnormal Lab Results - Last 24 Hours (Table) 09/07/20 09/07/20 09/07/20 Range/Units 04:44 04:44 04:44 WBC 4.03 L (4.50-10.00) X 10*3/uL RBC 4.16 L (4.40-5.60) X 10*6/uL Hct 39.3 L (39.6-50.0) % MPV 12.4 H (9.5-12.2) fL Lymphocytes # 0.76 L (0.90-5.00) X 10*3/uL Monocytes # 0.09 L (0.20-1.00) X 10*3/uL Eosinophils # 0 L (0.04-0.35) X 10*3/uL PT 27.3 H (9.9-11.9) sec INR 2.67 H (0.90-1.11) Sodium 132 L (135-145) mmol/L Carbon Dioxide 20.4 L (21.6-31.8) mmol/L Glucose 159 H (70-110) mg/dL Calcium 8.4 L (8.7-10.3) mg/dL Magnesium 1.4 L (1.5-2.4) mg/dL Microbiology - Last 24 Hours (Table) 09/06/20 Unknown Gram Stain - Preliminary Hand - Left Wound Culture - Preliminary Presumptive Staph aureus 09/06/20 11:03 Blood Culture - Final Blood 09/06/20 11:03 Blood Culture - Preliminary Blood No Growth after 24 hours 09/06/20 Unknown Genital Culture - Preliminary Penis 09/06/20 Unknown Anaerobic Culture - Preliminary Penis Assessment and Plan Assessment: Cellulitis secondary to fungal infection with possible superimposed staph inf ection Nicotine dependence Alcohol abuse at-risk of fall, withdrawal Hypertension Chronic atrial fibrillation on Coumadin History of osteoarthritis Apnea on CPAP/BiPAP He not in acute exacerbation 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 Continue with antibiotics per infectious disease team Currently patient is to fluconazole Continue IV vancomycin until the final results of blood culture which is growing staph Change steroids prednisone 20 mg daily Gentle hydration Labs and medication were reviewed.. Continue same treatment. Continue with symptomatic treatment. Resume home medication. Monitor lytes and vitals. DVT and GI prophylaxis. Further recommendations depends on the clinical course of the patient DVT prophylaxis: on Coumadin GI Prophylaxis: Pepcid PT/OT: Pending Prognosis is guarded
[2020-09-08] MEDS: HYDROcodone/APAP 5-325MG 1 EACH TAB PO PRN ×3 (00:14→21:19)
[2020-09-08] MEDS: SODIUM CHLORIDE 0.9% 1,000 ML IV SCH ×2 (01:30→21:45)
[2020-09-08] MEDS ORDERED: VANCOMYCIN TROUGH DUE 1 EACH MISC MISCELLANE ONE (03:00)
[2020-09-08] MEDS: MORPHINE SULFATE 4 MG/ML SYRINGE IV PRN (03:48)
[2020-09-08 05:13] LABS: INR 4.5 (<1.2)
[2020-09-08] MEDS: VANCOMYCIN 1,250 MG in SODIUM CHLORIDE 0.9% 250 ML IVPB SCH (06:19)
[2020-09-08] MEDS: FLUCONAZOLE 100 MG TAB PO SCH (08:17)
[2020-09-08] MEDS: PANTOPRAZOLE 40 MG TABLET PO SCH (08:17)
[2020-09-08] MEDS: DILTIAZEM CD 120 MG CAP.ER.24H PO SCH (08:17)
[2020-09-08] MEDS: TAMSULOSIN 0.4 MG CAP.ER.24H PO SCH (08:17)
[2020-09-08] MEDS: predniSONE 20 MG TAB PO SCH (08:17)
[2020-09-08] MEDS: lisinopriL 10 MG TAB PO SCH (08:18)
[2020-09-08] MEDS: NYSTATIN 100,000 UNIT/GM POWD 15 GM TOPICAL SCH ×2 (08:18→21:33)
[2020-09-08] MEDS: NYSTATIN 100,000UNIT/GM CREAM 30 GM TUBE TOPICAL SCH ×2 (08:18→21:33)
[2020-09-08 09:22] LABS: Basophils # (A) 0.01 X 10*3/uL (0.00-0.10); Basophils % (A) 0.1 %; Eosinophils # (A) 0 X 10*3/uL (0.04-0.35); Eosinophils % (A) 0 %; HCT 36.1 % (39.6-50.0); HGB 12.2 g/dL (13.0-17.0); Lymphocytes # (A) 1.17 X 10*3/uL (0.90-5.00); Lymphocytes % (A) 12.4 %; MCHC 33.8 g/dL (32.0-37.0); MCV 94.8 fL (80.0-97.0); Monocytes # (A) 0.63 X 10*3/uL (0.20-1.00); Monocytes % (A) 6.7 %; Neutrophils # (A) 7.53 X 10*3/uL (1.80-7.70); Neutrophils % (A) 80.2 %; Platelet Count 187 X 10*3/uL (140-440); RBC 3.81 X 10*6/uL (4.40-5.60)
[2020-09-08] MEDS ORDERED: PHYTONADIONE ORAL 5 MG/5 ML ORAL.SYRG PO ONE (09:30)
[2020-09-08 10:21] LABS: Anion Gap 6.4 mmol/L (4.00-12.00); Calcium 8.4 mg/dL (8.7-10.3); Carbon Dioxide 21.6 mmol/L (21.6-31.8); Non-African American GFR(CKD) 98.4 (60.0-200.0); Potassium 4.6 mmol/L (3.5-5.5)
[2020-09-08] MEDS: VANCOMYCIN 1,500 MG in SODIUM CHLORIDE 0.9% 250 ML IVPB SCH ×2 (14:15→21:24)
[2020-09-08] MEDS ORDERED: WARFARIN 0.5 MG TAB PO ONE (18:00)
--- NOTE | 2020-09-08 19:26 | PN ---
PROGRESS NOTE DATE OF SERVICE: 09/08/2020. FOLLOWUP: Fungal dermatitis with concern for secondary cellulitis and bacteremia. INTERVAL HISTORY: Patient's clinical course complicated by development of positive blood culture with MRSA with gram-positive Staphylococcus species. The patient local cultures from the left showing Staph aureus. The patient overall pain and discomfort to the left hand has decreased. No chest pain, shortness of breath or cough. No abdominal pain. No diarrhea. PHYSICAL EXAMINATION: Blood pressure 130/75, pulse of 51 temperature 97.5, 97% on room air. General description is an elderly male lying in bed in no distress. Respiratory system: Unlabored breathing. Clear to auscultation anteriorly. Heart S1, S2. Regular rate and rhythm. Abdomen: Soft, no tenderness. Left still has the dryness, redness has improved. Groin area swelling has decreased. No drainage. LABS: Hemoglobin 12.1, white count 9.40. DIAGNOSTIC IMPRESSION AND PLAN: Patient with left hand fungal dermatitis concern for worsening cellulitis now with evidence of bacteremia. Blood culture with Staph aureus. Local culture Staph aureus. Vancomycin has been started to continue local care with nystatin cream with Nystatin powder to the groin area and we will reevaluate the patient tomorrow. MMODL / IJN: [id number] /
--- NOTE | 2020-09-08 23:53 | P.PN ---
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 No abdominal pain or diarrhea. No vomiting. He can eat and breathe normally. No fever. He smokes about 1 pack per day, and he drinks 2-3 beers every day Vitas looks stable, blood pressure 155/96. Patient is afebrile CBC, BMP and liver enzymes are unremarkable, except for mild hyponatremia 131, INR is 2.8 In the emergency room cellulitis of the hand is suspected and patient was started on IV vancomycin, and dose of Zosyn . 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 Discussed the case with ID team, most likely this is fungal cellulitis of the hand and genitalia and fluconazole is recommended However wound culture came back positive for staph, therefore we will keep IV vancomycin for now and follow up final culture results Degrees steroids to prednisone 20 mg daily 09/08/2020 Patient crash in the hands and genital and lower abdominal area is improving Still complains from burning in his mouth and chlorhexidine is provided Left hand wound culture and blood culture are growing staph aureus which is covered with IV vancomycin now, Left hand wound culture showing MSSA and stripped agalactia but blood culture staph sensitivity is a still pending Also on Diflucan for possible fungal cellulitis INR is 4.5 and 1 dose of vitamin K is a provided. Monitor INR and hemoglobin Sodium is 127, we'll keep monitoring. Objective - Vital Signs Vital signs: Vital Signs Temp 97.3 F L 09/08/20 20:19 Pulse 50 L 09/08/20 20:19 Resp 18 09/08/20 20:19 BP 131/80 09/08/20 20:19 Pulse Ox 99 09/08/20 20:19 Intake & Output 09/08/20 09/08/20 09/09/20 06:59 18:59 06:59 Intake Total 180 Output Total 1000 800 Balance -1000 -620 Intake: Oral 180 Output: Urine 1000 800 Other: Voiding Method Urinal Urinal # Voids 2 - Exam GENERAL: The patient is alert and oriented x3, not in any acute distress. Well developed, well nourished. HEENT: Pupils are round and equally reacting to light. EOMI. No scleral icterus. No conjunctival pallor. Normocephalic, atraumatic. No pharyngeal erythema. No thyromegaly. CARDIOVASCULAR: S1 and S2 present. No murmurs, rubs, or gallops. PULMONARY: Chest is clear to auscultation, no wheezing or crackles. ABDOMEN: Soft, nontender, nondistended, normoactive bowel sounds. No palpable organomegaly. MUSCULOSKELETAL: No joint swelling or deformity. EXTREMITIES: No cyanosis, clubbing, or pedal edema. NEUROLOGICAL: Gross neurological examination did not reveal any focal deficits. SKIN:No petechiae. as below -Bilateral hand erythema, swelling and a scale and with some superficial cracks, left side extending into the distal forearm. Improving -Mouth and lip erythema , improved - penile swelling, erythema with scant distal yellow discharge. swelling and erythema extending into lower suprapubic abdomen . Improving - Labs CBC & Chem 7: 09/08/20 04:33 09/08/20 04:33 Labs: Abnormal Lab Results - Last 24 Hours (Table) 09/08/20 09/08/20 09/08/20 Range/Units 04:33 04:33 04:47 RBC 3.81 L (4.40-5.60) X 10*6/uL Hgb 12.2 L (13.0-17.0) g/dL Hct 36.1 L (39.6-50.0) % Immature Gran # 0.06 H (0.00-0.04) X 10*3/uL Eosinophils # 0 L (0.04-0.35) X 10*3/uL PT 43.0 H (9.0-12.0) sec INR 4.5 H (<1.2) Sodium 127 L (135-145) mmol/L BUN/Creatinine Ratio 30.00 H (12.00-20.00) Ratio Glucose 182 H (70-110) mg/dL Calcium 8.4 L (8.7-10.3) mg/dL Microbiology - Last 24 Hours (Table) 09/06/20 Unknown Gram Stain - Final Hand - Left Wound Culture - Final Staphylococcus aureus Strep agalactiae - (group b) 09/06/20 11:03 Blood Culture - Preliminary Blood No Growth after 48 hours 09/06/20 11:20 Blood Culture Gram Stain - Preliminary Blood Blood Culture - Preliminary Staphylococcus species Assessment and Plan Assessment: Cellulitis secondary to fungal infection with possible superimposed staph infection Staph bacteremia Hyponatremia Nicotine dependence Alcohol abuse at-risk of alcohol withdrawal Hypertension Chronic atrial fibrillation on Coumadin History of osteoarthritis Apnea on CPAP/BiPAP He not in acute exacerbation 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 Continue with antibiotics per infectious disease team Currently patient is to fluconazole Continue IV vancomycin until the final results of blood culture which is growing staph Discontinue steroids prednisone 20 mg daily Gentle hydration Labs and medication were reviewed.. Continue same treatment. Continue with symptomatic treatment. Resume home medication. Monitor lytes and vitals. DVT and GI prophylaxis. Further recommendations depends on the clinical course of the patient DVT prophylaxis: on Coumadin GI Prophylaxis: Pepcid PT/OT: Pending Prognosis is guarded
[2020-09-09] MEDS: VANCOMYCIN 1,500 MG in SODIUM CHLORIDE 0.9% 250 ML IVPB SCH ×2 (05:12→14:17)
[2020-09-09 07:05] LABS: INR 2.3 (<1.2); Prothrombin Time 22.2 sec (9.0-12.0)
[2020-09-09] MEDS: TAMSULOSIN 0.4 MG CAP.ER.24H PO SCH (08:05)
[2020-09-09] MEDS: PANTOPRAZOLE 40 MG TABLET PO SCH (08:05)
[2020-09-09] MEDS: HYDROcodone/APAP 5-325MG 1 EACH TAB PO PRN ×2 (08:05→20:06)
[2020-09-09] MEDS: FLUCONAZOLE 100 MG TAB PO SCH (08:05)
[2020-09-09] MEDS: DILTIAZEM CD 120 MG CAP.ER.24H PO SCH (08:06)
[2020-09-09] MEDS: lisinopriL 10 MG TAB PO SCH (08:06)
[2020-09-09] MEDS: predniSONE 20 MG TAB PO SCH (08:06)
[2020-09-09] MEDS: NYSTATIN 100,000UNIT/GM CREAM 30 GM TUBE TOPICAL SCH ×2 (08:06→20:08)
[2020-09-09] MEDS: NYSTATIN 100,000 UNIT/GM POWD 15 GM TOPICAL SCH ×2 (08:06→20:08)
[2020-09-09 10:23] LABS: Basophils # (A) 0.01 X 10*3/uL (0.00-0.10); Basophils % (A) 0.1 %; Eosinophils # (A) 0.01 X 10*3/uL (0.04-0.35); Eosinophils % (A) 0.1 %; HCT 37.2 % (39.6-50.0); HGB 12.8 g/dL (13.0-17.0); Lymphocytes # (A) 1.45 X 10*3/uL (0.90-5.00); Lymphocytes % (A) 15.3 %; MCH 32.4 pg (27.0-32.0); MCHC 34.4 g/dL (32.0-37.0); MCV 94.2 fL (80.0-97.0); Mean Platelet Volume 12.3 fL (9.5-12.2); Monocytes # (A) 0.88 X 10*3/uL (0.20-1.00); Monocytes % (A) 9.3 %; Neutrophils # (A) 7.07 X 10*3/uL (1.80-7.70); Neutrophils % (A) 74.8 %; Platelet Count 179 X 10*3/uL (140-440); RBC 3.95 X 10*6/uL (4.40-5.60); WBC 9.46 X 10*3/uL (4.50-10.00)
[2020-09-09 10:25] LABS: Anion Gap 4.4 mmol/L (4.00-12.00); BUN/Creat Ratio 28.57 Ratio (12.00-20.00); Calcium 8.7 mg/dL (8.7-10.3); Carbon Dioxide 26.6 mmol/L (21.6-31.8); Non-African American GFR(CKD) 92.3 (60.0-200.0); Potassium 4.4 mmol/L (3.5-5.5)
[2020-09-09] MEDS: CHLORHEXIDINE GLUCONATE 15 ML CUP MUCOUS MEM SCH ×2 (13:39→21:17)
[2020-09-09] MEDS ORDERED: WARFARIN 1 MG TAB PO ONE (18:00)
--- NOTE | 2020-09-09 19:44 | PN ---
PROGRESS NOTE DATE OF SERVICE: 09/09/2020. REASON FOR FOLLOW UP: 1. Left hand fungal dermatitis with concern for secondary cellulitis. 2. Abdominal wall fungal dermatitis and bilateral groin area cutaneous candidiasis. 3. Bacteremia. INTERVAL HISTORY: The patient is afebrile. The patient's left hand is dry skin is peeling off. The redness has improved. The patient denies any pain to the left hand. The patient denies any chest pain or shortness of breath or cough. No abdominal pain. No diarrhea. PHYSICAL EXAMINATION: Blood pressure 147/85 with a pulse of 55, temperature 97.7, he is 99% on room air. General description is an elderly male lying in bed in no distress. Respiratory system: Unlabored breathing. Clear to auscultation anteriorly. Heart S1, S2. Regular rate and rhythm. Abdomen: Soft, no tenderness. Left hand is dry. Dryness is going away. Redness has decreased and no drainage. LABS: Hemoglobin 12.1, white count 9.4, BUN of 20, creatinine 0.7. Wound culture with MSSA and strep. Blood culture with Streptococcus species with ID sensitivity pending. DIAGNOSTIC IMPRESSION AND PLAN: Patient with left hand abdominal wall fungal dermatitis. Concern for possible secondary cellulitis now with positive blood culture. We will wait for the blood culture to finalize to determine significance of it and discharge antibiotic. Antibiotic will be switched to Cefazolin. Local care to continue with nystatin cream to the hand and nystatin powder to the groin area and we will reevaluate the patient tomorrow. MMODL / IJN: [id number] /
--- NOTE | 2020-09-09 22:48 | P.PN ---
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 No abdominal pain or diarrhea. No vomiting. He can eat and breathe normally. No fever. He smokes about 1 pack per day, and he drinks 2-3 beers every day Vitas looks stable, blood pressure 155/96. Patient is afebrile CBC, BMP and liver enzymes are unremarkable, except for mild hyponatremia 131, INR is 2.8 In the emergency room cellulitis of the hand is suspected and patient was started on IV vancomycin, and dose of Zosyn . 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 Discussed the case with ID team, most likely this is fungal cellulitis of the hand and genitalia and fluconazole is recommended However wound culture came back positive for staph, therefore we will keep IV vancomycin for now and follow up final culture results Degrees steroids to prednisone 20 mg daily 09/08/2020 Patient crash in the hands and genital and lower abdominal area is improving Still complains from burning in his mouth and chlorhexidine is provided Left hand wound culture and blood culture are growing staph aureus which is covered with IV vancomycin now, Left hand wound culture showing MSSA and stripped agalactia but blood culture staph sensitivity is a still pending Also on Diflucan for possible fungal cellulitis INR is 4.5 and 1 dose of vitamin K is a provided. Monitor INR and hemoglobin Sodium is 127, we'll keep monitoring. 09-09-20 Patient crash his improvement and he is having about it today. INR today is 2.3 and Coumadin resumed Sodium improved to 132 Patient responded to treatment with fluconazole and antibiotics wished to cefazolin after left hand wound culture showing MSSA and stripped agalactia. Blood culture showing staph only pending the final results of culture Objective - Vital Signs Vital signs: Vital Signs Temp 97.7 F 09/09/20 14:21 Pulse 65 09/09/20 14:21 Resp 17 09/09/20 14:21 BP 147/85 09/09/20 14:21 Pulse Ox 99 09/09/20 14:21 Intake & Output 09/08/20 09/09/20 09/09/20 18:59 06:59 18:59 Intake Total 180 500 822 Output Total 800 700 Balance -620 500 122 Intake: Intake, IV Titration 500 Amount Vancomycin 1,500 mg In 500 Sodium Chloride 0.9% 250 ml @ 125 mls/hr IVPB Q8H [facility] Rx#:[id number] Oral 180 822 Output: Urine 800 700 Other: Voiding Method Urinal Urinal Urinal - Exam GENERAL: The patient is alert and oriented x3, not in any acute distress. Well developed, well nourished. HEENT: Pupils are round and equally reacting to light. EOMI. No scleral icterus. No conjunctival pallor. Normocephalic, atraumatic. No pharyngeal erythema. No thyromegaly. CARDIOVASCULAR: S1 and S2 present. No murmurs, rubs, or gallops. PULMONARY: Chest is clear to auscultation, no wheezing or crackles. ABDOMEN: Soft, nontender, nondistended, normoactive bowel sounds. No palpable organomegaly. MUSCULOSKELETAL: No joint swelling or deformity. EXTREMITIES: No cyanosis, clubbing, or pedal edema. NEUROLOGICAL: Gross neurological examination did not reveal any focal deficits. SKIN:No petechiae. as below -Bilateral hand erythema, swelling and a scale and with some superficial cracks, left side extending into the distal forearm. Improving -Mouth and lip erythema , improved - penile swelling, erythema with scant distal yellow discharge. swelling and erythema extending into lower suprapubic abdomen . Improving - Labs CBC & Chem 7: 09/09/20 06:33 09/09/20 06:33 Labs: Abnormal Lab Results - Last 24 Hours (Table) 09/09/20 09/09/20 09/09/20 Range/Units 06:33 06:33 06:33 RBC 3.95 L (4.40-5.60) X 10*6/uL Hgb 12.8 L (13.0-17.0) g/dL Hct 37.2 L (39.6-50.0) % MCH 32.4 H (27.0-32.0) pg MPV 12.3 H (9.5-12.2) fL Eosinophils # 0.01 L (0.04-0.35) X 10*3/uL PT 22.2 H (9.0-12.0) sec INR 2.3 H (<1.2) Sodium 132 L (135-145) mmol/L BUN/Creatinine Ratio 28.57 H (12.00-20.00) Ratio Glucose 136 H (70-110) mg/dL Microbiology - Last 24 Hours (Table) 09/06/20 11:03 Blood Culture - Preliminary Blood No Growth after 72 hours 09/08/20 04:54 Blood Culture - Preliminary Blood No Growth after 24 hours 09/06/20 Unknown Anaerobic Culture - Preliminary Penis 09/06/20 Unknown Gram Stain - Final Hand - Left Wound Culture - Final Staphylococcus aureus Strep agalactiae - (group b) Assessment and Plan Assessment: Cellulitis secondary to fungal infection with possible superimposed staph infection Staph bacteremia Hyponatremia Nicotine dependence Alcohol abuse at-risk of alcohol withdrawal Hypertension Chronic atrial fibrillation on Coumadin History of osteoarthritis Apnea on CPAP/BiPAP He not in acute exacerbation 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 Continue with antibiotics per infectious disease team Currently patient is to fluconazole Continue IV vancomycin until the final results of blood culture which is growing staph Discontinue steroids prednisone 20 mg daily Gentle hydration Labs and medication were reviewed.. Continue same treatment. Continue with symptomatic treatment. Resume home medication. Monitor lytes and vitals. DVT and GI prophylaxis. Further recommendations depends on the clinical course of the patient DVT prophylaxis: on Coumadin GI Prophylaxis: Pepcid PT/OT: Pending Prognosis is guarded
[2020-09-10] MEDS ORDERED: VANCOMYCIN TROUGH DUE 1 EACH MISC MISCELLANE ONE (05:00)
[2020-09-10 06:04] LABS: African American GFR (CKD) >90 (>60 ml/min/1.73 sqM); Non-African American GFR(CKD) >90 (>60 ml/min/1.73 sqM)
[2020-09-10 06:17] LABS: Prothrombin Time 19.5 sec (9.0-12.0)
[2020-09-10] MEDS: TAMSULOSIN 0.4 MG CAP.ER.24H PO SCH (08:04)
[2020-09-10] MEDS: PANTOPRAZOLE 40 MG TABLET PO SCH (08:04)
[2020-09-10] MEDS: FLUCONAZOLE 100 MG TAB PO SCH (08:05)
[2020-09-10] MEDS: DILTIAZEM CD 120 MG CAP.ER.24H PO SCH (08:05)
[2020-09-10] MEDS: lisinopriL 10 MG TAB PO SCH (08:05)
[2020-09-10] MEDS: NYSTATIN 100,000 UNIT/GM POWD 15 GM TOPICAL SCH ×2 (08:06→19:54)
[2020-09-10] MEDS: NYSTATIN 100,000UNIT/GM CREAM 30 GM TUBE TOPICAL SCH ×2 (08:06→19:54)
[2020-09-10] MEDS: HYDROcodone/APAP 5-325MG 1 EACH TAB PO PRN ×2 (08:19→18:20)
[2020-09-10] MEDS ORDERED: predniSONE 10 MG TAB PO SCH (09:00)
[2020-09-10] MEDS: CHLORHEXIDINE GLUCONATE 15 ML CUP MUCOUS MEM SCH ×2 (10:43→21:03)
--- NOTE | 2020-09-10 13:31 | P.PN ---
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 No abdominal pain or diarrhea. No vomiting. He can eat and breathe normally. No fever. He smokes about 1 pack per day, and he drinks 2-3 beers every day Vitas looks stable, blood pressure 155/96. Patient is afebrile CBC, BMP and liver enzymes are unremarkable, except for mild hyponatremia 131, INR is 2.8 In the emergency room cellulitis of the hand is suspected and patient was started on IV vancomycin, and dose of Zosyn . 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 Discussed the case with ID team, most likely this is fungal cellulitis of the hand and genitalia and fluconazole is recommended However wound culture came back positive for staph, therefore we will keep IV vancomycin for now and follow up final culture results Degrees steroids to prednisone 20 mg daily 09/08/2020 Patient crash in the hands and genital and lower abdominal area is improving Still complains from burning in his mouth and chlorhexidine is provided Left hand wound culture and blood culture are growing staph aureus which is covered with IV vancomycin now, Left hand wound culture showing MSSA and stripped agalactia but blood culture staph sensitivity is a still pending Also on Diflucan for possible fungal cellulitis INR is 4.5 and 1 dose of vitamin K is a provided. Monitor INR and hemoglobin Sodium is 127, we'll keep monitoring. 09-09-20 Patient crash his improvement and he is having about it today. INR today is 2.3 and Coumadin resumed Sodium improved to 132 Patient responded to treatment with fluconazole and antibiotics wished to cefazolin after left hand wound culture showing MSSA and stripped agalactia. Blood culture showing staph only pending the final results of culture 09/10/2020 His rash significantly improving, almost disappearing but with a scale and. Vital signs stable, labs are stable and creatinine normal. There is 2.0 today after 1 mg of Coumadin, his don't receive 2 mg tonight. Check INR tomorrow Continue with cefazolin and oral fluconazole for fungal cellulitis and secondary posterior infection with MSSA. Positive blood culture with staph as well. id team on the case possible discharge in 24-48 hours once culture finalize and he keeps improving Objective - Vital Signs Vital signs: Vital Signs Temp 97.9 F 09/10/20 07:00 Pulse 56 L 09/10/20 08:00 Resp 16 09/10/20 08:00 BP 134/93 09/10/20 07:00 Pulse Ox 97 09/10/20 07:00 Intake & Output 09/09/20 09/10/20 09/10/20 18:59 06:59 18:59 Intake Total 822 Output Total 700 750 975 Balance 122 -750 -975 Intake: Oral 822 Output: Urine 700 750 975 Stool 0 Other: Voiding Method Urinal Urinal Urinal # Voids 1 - Exam GENERAL: The patient is alert and oriented x3, not in any acute distress. Well developed, well nourished. HEENT: Pupils are round and equally reacting to light. EOMI. No scleral icterus. No conjunctival pallor. Normocephalic, atraumatic. No pharyngeal erythema. No thyromegaly. CARDIOVASCULAR: S1 and S2 present. No murmurs, rubs, or gallops. PULMONARY: Chest is clear to auscultation, no wheezing or crackles. ABDOMEN: Soft, nontender, nondistended, normoactive bowel sounds. No palpable organomegaly. MUSCULOSKELETAL: No joint swelling or deformity. EXTREMITIES: No cyanosis, clubbing, or pedal edema. NEUROLOGICAL: Gross neurological examination did not reveal any focal deficits. SKIN:No petechiae. as below -Bilateral hand erythema, swelling and a scale and with some superficial cracks, left side extending into the distal forearm. Improving -Mouth and lip erythema , improved - penile swelling, erythema with scant distal yellow discharge. swelling and erythema extending into lower suprapubic abdomen . Improving - Labs CBC & Chem 7: 09/09/20 06:33 09/10/20 05:29 Labs: Abnormal Lab Results - Last 24 Hours (Table) 09/10/20 09/10/20 Range/Units 05:29 05:29 PT 19.5 H (9.0-12.0) sec INR 2.0 H (<1.2) Creatinine 0.59 L (0.66-1.25) mg/dL Microbiology - Last 24 Hours (Table) 09/06/20 11:20 Blood Culture Gram Stain - Final Blood Blood Culture - Final Coagulase Negative Staph 09/06/20 Unknown Genital Culture - Final Penis Staphylococcus aureus 09/08/20 04:54 Blood Culture - Preliminary Blood No Growth after 48 hours 09/06/20 11:03 Blood Culture - Preliminary Blood No Growth after 72 hours Assessment and Plan Assessment: Cellulitis secondary to fungal infection with possible superimposed staph infection Staph bacteremia Hyponatremia Nicotine dependence Alcohol abuse at-risk of alcohol withdrawal Hypertension Chronic atrial fibrillation on Coumadin History of osteoarthritis Apnea on CPAP/BiPAP He not in acute exacerbation 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 Continue with antibiotics per infectious disease team Currently patient is to fluconazole Antibiotics changed to cefazolin Labs and medication were reviewed.. Continue same treatment. Continue with symptomatic treatment. Resume home medication. Monitor lytes and vitals. DVT and GI prophylaxis. Further recommendations depends on the clinical course of the patient DVT prophylaxis: on Coumadin GI Prophylaxis: Pepcid PT/OT: Home with possible home health care Prognosis is guarded
[2020-09-10] MEDS ORDERED: WARFARIN 2 MG TAB PO ONE (18:00)
[2020-09-10] MEDS: MORPHINE SULFATE 4 MG/ML SYRINGE IV PRN (19:50)
[2020-09-11 05:19] LABS: INR 2.1 (<1.2); Prothrombin Time 20.3 sec (9.0-12.0)
[2020-09-11] MEDS: lisinopriL 10 MG TAB PO SCH (07:49)
[2020-09-11] MEDS: TAMSULOSIN 0.4 MG CAP.ER.24H PO SCH (07:49)
[2020-09-11] MEDS: PANTOPRAZOLE 40 MG TABLET PO SCH (07:49)
[2020-09-11] MEDS: DILTIAZEM CD 120 MG CAP.ER.24H PO SCH (07:49)
[2020-09-11] MEDS: FLUCONAZOLE 100 MG TAB PO SCH (07:50)
[2020-09-11] MEDS: NYSTATIN 100,000UNIT/GM CREAM 30 GM TUBE TOPICAL SCH (07:51)
[2020-09-11] MEDS: NYSTATIN 100,000 UNIT/GM POWD 15 GM TOPICAL SCH (07:51)
[2020-09-11] MEDS: HYDROcodone/APAP 5-325MG 1 EACH TAB PO PRN (07:56)
[2020-09-11] MEDS: CHLORHEXIDINE GLUCONATE 15 ML CUP MUCOUS MEM SCH (08:28)
--- NOTE | 2020-09-11 14:32 | PN ---
PROGRESS NOTE DATE OF SERVICE: 09/11/2020 REASON FOR FOLLOWUP: 1. Bilateral hand and groin area fungal dermatitis with secondary cellulitis. 2. Groin area cutaneous candidiasis. INTERVAL HISTORY: The patient is afebrile. The patient is breathing comfortably. Patient denies having any chest pain, shortness of breath or cough. No abdominal pain. Overall pain and discomfort to the hand and groin area has improved. PHYSICAL EXAMINATION: Blood pressure 143/91 with a pulse of 75, temperature is 97.7. He is 98% on room air. General description is an elderly male lying in bed in no distress. Respiratory system: Unlabored breathing, clear to auscultation anteriorly. Heart S1, S2. Regular rate and rhythm. Abdomen: Soft, no tenderness. Hand area dryness has improved and the skin is peeling off. Redness is decreased. LABS: INR is 2.1. DIAGNOSTIC IMPRESSION AND PLAN: 1. Patient with bilateral hand and abdominal wall fungal dermatitis with secondary cellulitis. Culture with . Plan is for oral Keflex, Diflucan and nystatin cream to the hand. 2. Groin area cutaneous candidiasis. Nystatin powder twice a day. MMODL / IJN: [id number] /
[2020-09-11 14:46] VITALS: BP 121/80; PULSE 74; RESP 17; TEMP 98.1
--- NOTE | 2020-09-11 15:18 | PN ---
PROGRESS NOTE REASON FOR FOLLOW UP: 1. Bilateral hand and groin fungal dermatitis secondary to cellulitis. 2. Bilateral groin area cutaneous candidiasis. INTERVAL HISTORY: The patient is afebrile. The patient is breathing comfortably. The patient hands are currently peeling off dry skin. Redness has improved. Denies any worsening pain. No chest pain, shortness of breath or cough. No abdominal pain, no diarrhea. PHYSICAL EXAMINATION: Blood pressure 151/69, pulse of 70, temperature 97.4. General description is an elderly male, lying in bed, in no distress. Respiratory system: Unlabored breathing, clear to auscultation anteriorly. Heart S1, S2. Regular rate and rhythm. Bilateral hand, especially left hand, dry skin is peeling off. No redness noticed. LABORATORY DATA: Hemoglobin is 12.1, white count 9.46. Blood culture with coagulase negative Staph. Local culture showing Staph aureus. IMPRESSION/PLAN: 1. Patient with bilateral hand fungal dermatitis with secondary cellulitis culture positive for MSSA and strep. The patient is covered with cefazolin, finish oral Keflex. Continue local care with nystatin cream. 2. Bilateral groin area cutaneous candidiasis. Continue with nystatin powder. 3. Positive blood culture coagulase negative Staph. Repeat culture negative, likely contaminant. No need for further workup for the same. MMODL / IJN: [id number] /
[2020-09-11] MEDS ORDERED: WARFARIN 2 MG TAB PO ONE (18:00)
--- NOTE | 2020-09-12 00:17 | P.DS ---
Providers Date of admission: 09/08/20 10:08 Attending physician: Ilir Harry Consults: 09/06/20 13:01 Consult Physician Routine Consulting Provider: Filiberto Coon Consult Reason/Comments: cellulitis, rash Do you want consulting provider notified?: Yes Primary care physician: 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 Patient was found to have cellulitis secondary to fungal infection with superimposed bacterial infection with MSSA and Streptococcus agalactiae. Infectious disease team for following the patient closely and he was treating with IV antibiotics. His cellulitis showed significant interval improvement, his erythema, swelling and tenderness improved to a large extent that on the day of discharge he has only very mild and minimal pinkish discoloration, no more further minimal swelling and pain is controlled. Patient was agreeable that his cellulitis is significantly improved and he agreeable to be discharged on oral antibiotics Patient was discharged with Keflex and topical nystatin cream/powder for about 7 days with recommendation for close outpatient follow-up and patient verbalized understanding and acceptance with this plan and to go home today. Patient denies any other systemic complaints. No chest pain or dyspnea, no GI or urinary complaints or change in habits. No fever Was cleared for discharge by ID team His INR was supratherapeutic on admission at 4.5 came down to 2.1 upon discharge. He is on Coumadin for his atrial fibrillation Problems and management plan were discussed with the patient and he verbalized understanding and acceptance Patient was found stable and can be discharged home however he needs follow-up as an outpatient. Patient was instructed to follow up with PCP within one week and patient agrees. [facility] an [facility] with his PCP Dr. Kaylie Miner on 09/20 and patient agreed with this appointment stating he will follow-up, however she was not available and I discussed with her PA Aden Carlos and I discussed the case with him with recommendation for close INR monitoring throughout his home health care upon discharge, and upon his request a prescription for checking INR every 2-3 days as provided for the patient through home health care to refer the results to [facility] at [phone] with extension [phone] attention aye per recommendation from Aden mello, Patient informed with this recommendation and he verbalized understanding and acceptance She is made aware his goal INR is 2-3 and should stop his Coumadin if his INR more than 3, he agrees Physical exam Gen: patient is a AAOx3, no distress CVS: S1-S2, RRR, no murmur Lungs: B/L CTA, no wheezing Abdomen: soft, no distention, no tenderness, positive bowel sounds Extremity: no leg edema or induration. Very mild pink erythema on hands with scaling. And his cellulitis in the lower abdomen and genital/penile area almost resolved. Time spent more than 35 minutes Plan - Discharge Summary Discharge Rx Participant: Yes New Discharge Prescriptions: New Nystatin 100,000Unit/gm Cream [Mycostatin Cream] 1 applic TOPICAL BID #1 applic Chlorhexidine Gluconate [Peridex] 15 ml MUCOUS MEM BID 3 Days #1 bottle Cephalexin [Keflex] 500 mg PO Q8HR 21 Days #7 cap Warfarin [Coumadin] 2 mg PO DAILY #30 tab Nystatin 100,000 Unit/gm Powd [Mycostatin Powder] 1 applic TOPICAL BID #1 applic Pantoprazole [Protonix] 40 mg PO AC-BRKFST #30 tablet.dr Continue Tamsulosin HCl [Flomax] 0.4 mg PO DAILY Diltiazem HCl [Diltiazem 24Hr ER] 120 mg PO DAILY hydrOXYzine HCL [Atarax] 25 mg PO HS Betamethasone Dipropionate [Diprolene AF 0.05% Cream] 1 applic TOPICAL DAILY Albuterol Sulfate [Ventolin HFA] 1 - 2 puff INHALATION Q6H PRN PRN Reason: Shortness Of Breath lisinopriL [Zestril] 10 mg PO DAILY Discontinued Warfarin [Coumadin] 2 mg PO HS Ibuprofen [Motrin] 600 mg PO Q8HR PRN PRN Reason: Pain Discharge Medication List Tamsulosin HCl [Flomax] 0.4 mg PO DAILY 03/30/15 [History] Diltiazem HCl [Diltiazem 24Hr ER] 120 mg PO DAILY 01/16/16 [History] hydrOXYzine HCL [Atarax] 25 mg PO HS 01/05/19 [History] Albuterol Sulfate [Ventolin HFA] 1 - 2 puff INHALATION Q6H PRN 09/06/20 [History] Betamethasone Dipropionate [Diprolene AF 0.05% Cream] 1 applic TOPICAL DAILY 09/06/20 [History] lisinopriL [Zestril] 10 mg PO DAILY 09/06/20 [History] Cephalexin [Keflex] 500 mg PO Q8HR 21 Days #7 cap 09/11/20 [Rx] Chlorhexidine Gluconate [Peridex] 15 ml MUCOUS MEM BID 3 Days #1 bottle 09/11/20 [Rx] Nystatin 100,000 Unit/gm Powd [Mycostatin Powder] 1 applic TOPICAL BID #1 applic 09/11/20 [Rx] Nystatin 100,000Unit/gm Cream [Mycostatin Cream] 1 applic TOPICAL BID #1 applic 09/11/20 [Rx] Pantoprazole [Protonix] 40 mg PO AC-BRKFST #30 tablet. 09/11/20 [Rx] Warfarin [Coumadin] 2 mg PO DAILY #30 tab 09/11/20 [Rx] Follow up Appointment(s)/Referral(s): [facility],Clinic [Primary Care Provider] - 09/20/20 11:00 am Ambulatory/Diagnostic Orders: Prothrombin Time INR [LAB.AMB] Time Frame: 2 Days, Location: None Selected Patient Instructions/Handouts: Cellulitis (DC) Activity/Diet/Wound Care/Special Instructions: Home Care order sent to [facility] for set up following discharge. heart healthy diet activity is restricted till you see your doctor please check your INR with your doctor in 2-3 days, your goal of INR is (2- 3), if your INR is more than 3 then hold your coumadin and tell your doctor immediately or come to emergency room check your INR with the home health care staff and refer results to [facility] office at [phone] [phone] with Colleen check you INR every 2-3 days Discharge Disposition: HOME WITH HOME HEALTH SERVICES
== END 2020-09-11 16:49 | disposition home health service (06) | DRG 607 ==
LOC: EC 10:30 → 6NMEDSUR 13:12 → OBSVTOIN 09-08 10:08
PROVIDERS: ADMIT Internal Medicine; ATTEND Internal Medicine
DX: B37.2 Candidiasis of skin and nail (principal); R78.81 Bacteremia; I48.20 Chronic atrial fibrillation, unspecified; E87.1 Hypo-osmolality and hyponatremia; B37.49 Other urogenital candidiasis; L03.114 Cellulitis of left upper limb; J44.9 Chronic obstructive pulmonary disease, unspecified; B95.61 Methicillin susceptible Staphylococcus aureus infection as the cause of diseases classified elsewhere; F10.10 Alcohol abuse, uncomplicated; I10 Essential (primary) hypertension; M19.90 Unspecified osteoarthritis, unspecified site; G47.30 Sleep apnea, unspecified; F17.210 Nicotine dependence, cigarettes, uncomplicated; Z79.01 Long term (current) use of anticoagulants; Z79.899 Other long term (current) drug therapy; Z91.81 History of falling; Z85.840 Personal history of malignant neoplasm of eye; Z97.0 Presence of artificial eye; Z98.42 Cataract extraction status, left eye; Z86.14 Personal history of Methicillin resistant Staphylococcus aureus infection; Z87.39 Personal history of other diseases of the musculoskeletal system and connective tissue; Z86.59 Personal history of other mental and behavioral disorders; Z98.890 Other specified postprocedural states; Z88.7 Allergy status to serum and vaccine; Z80.0 Family history of malignant neoplasm of digestive organs; Z84.1 Family history of disorders of kidney and ureter
CPT/HCPCS: 36415; 80048; 80053; 80202; 82565; 83605; 83735; 84145; 85025; 85610; 85730; 86140; 87040; 87070; 87075; 87077; 87186; 87205; 96365; 96366; 96374; 96375; 96376; 99284

== ENCOUNTER → 2021-02-06 | Outpatient (CLI) | payer MEDICARE, OTHER ==
--- NOTE | 2021-02-07 03:23 | MR ---
EXAMINATION TYPE: MR shoulder RT wo con DATE OF EXAM: 02/06/2021 COMPARISON: None HISTORY: Right shoulder pain for 1 month. History of surgery. Multiplanar multiecho imaging of the right shoulder without contrast. There is severe subacromial joint space narrowing with the humeral head in contact with the acromion. There is retraction of the supraspinatus tendon. There is severe narrowing of the glenohumeral joint space with spur formation. The subscapularis tend on appears intact. There are small shoulder joint effusion. The biceps tendon is intact. There are sm all degenerative cysts in the humeral head. The glenoid jennifer appear intact posteriorly and slight de formity anteriorly consistent with degenerative phenomenon. There is no evidence of a fracture. There is linear defect in the greater tuberosity humerus related to reconstructive surgery. IMPRESSION: Large rotator cuff tear with retraction of the supraspinatus tendon. Severe subacromial joint space n arrowing and impingement. Osteoarthritis.
== END | disposition home or self-care (01) ==
LOC: RADMRIMAIN 16:22
PROVIDERS: ATTEND Physician Assistant Medical
DX: M75.111 Incomplete rotator cuff tear or rupture of right shoulder, not specified as traumatic (principal); M19.011 Primary osteoarthritis, right shoulder

== ENCOUNTER → 2021-09-12 | Outpatient (CLI) | payer OTHER ==
[2021-09-12 18:14] LABS: Basophils # (A) 0.09 X 10*3/uL (0.00-0.10); Basophils % (A) 1.2 %; Eosinophils # (A) 0.55 X 10*3/uL (0.04-0.35); Eosinophils % (A) 7.4 %; HCT 46.4 % (39.6-50.0); HGB 15.5 g/dL (13.0-17.0); Immature Grans, Automated 0.3 %; Lymphocytes # (A) 2.27 X 10*3/uL (0.90-5.00); Lymphocytes % (A) 30.7 %; MCH 30.6 pg (27.0-32.0); MCHC 33.4 g/dL (32.0-37.0); MCV 91.5 fL (80.0-97.0); Mean Platelet Volume 12.5 fL (9.5-12.2); Monocytes # (A) 0.77 X 10*3/uL (0.20-1.00); Monocytes % (A) 10.4 %; NRBC Per 100 WBC 0 /100 WBCS (0.0-0.0); Platelet Count 179 X 10*3/uL (140-440); RBC 5.07 X 10*6/uL (4.40-5.60); RDW 13.2 % (11.5-14.5)
[2021-09-12 19:10] LABS: African American GFR (CKD) 99.3 (60.0-200.0); Albumin 4.1 g/dL (3.8-4.9); Albumin/Globulin Ratio 1.18 (1.60-3.17); Anion Gap 11.1 mmol/L (10.00-18.00); BUN/Creat Ratio 11.67 Ratio (12.00-20.00); Bilirubin, Conjugated 0.48 mg/dL (0.20-0.40); Bilirubin,Unconjugated 0.48 mg/dL (0.20-1.00); Blood Urea Nitrogen 9.6 mg/dL (9.0-27.0); Calcium 9.3 mg/dL (8.7-10.3); Carbon Dioxide 23.2 mmol/L (20.0-27.5); Globulin 3.5 g/dL (1.6-3.3); Magnesium 1.9 mg/dL (1.5-2.4); Non-African American GFR(CKD) 85.7 (60.0-200.0); Potassium 4.5 mmol/L (3.5-5.5); Total Protein 7.6 g/dL (6.2-8.2)
[2021-09-12 19:14] LABS: Hepatitis B Surface AB- Quant 3.5 mIU/mL; Hepatitis B Surface Antibody Nonreactive (Nonreactive)
[2021-09-12 19:24] LABS: Hepatitis B Surface Antigen Nonreactive (Nonreactive); Hepatitis C IgG Antibody Nonreactive (Nonreactive)
[2021-09-13 02:42] LABS: HIV 2 AB Non-Reactive (Non-Reactive); HIV AB P24 Non-Reactive (Non-Reactive); HIV P24 AG Non-Reactive (Non-Reactive)
== END | disposition home or self-care (01) ==
LOC: LABWHC1 11:43
PROVIDERS: ATTEND Dermatology
DX: L40.0 Psoriasis vulgaris (principal)
CPT/HCPCS: 36415; 80048; 80076; 83735; 85025; 86480; 86704; 86706; 86803; 87340; 87390

== ENCOUNTER 2021-09-27 10:55 | Emergency (ER) | payer OTHER ==
[2021-09-27 10:59] VITALS: RESP 20; TEMP 97.5
--- NOTE | 2021-09-27 11:33 | ED ---
Upper Extremity HPI - General Chief Complaint: Extremity Injury, Upper Stated Complaint: Swelling on RT hand Time Seen by Provider: 09/27/21 11:09 Source: patient, RN notes reviewed Mode of arrival: ambulatory Limitations: no limitations - History of Present Illness Initial Comments: Patient is a 76-year-old male presents to the emergency room with complaints of right hand pain and swelling along with the development of a blisterlike lesion distal to his third digit. He states that he believes he may have hit his hand on something earlier last week as he has had some pain with movement of his fourth and fifth digits ongoing for since that time however he denies any major blunt force trauma. He reports that the increase in swelling in his hand has made his range of motion even more difficult. He denies any other wounds besides the development of blister over the last 24 hours. He is concerned as he has a history of MRSA cellulitis of his left hand requiring hospitalization for IV vancomycin previously. He denies any chest pain, óscar rtness of breath, abdominal pain, nausea, vomiting, lethargy, altered mental status, fevers or chills. His past medical history significant for hypertension, A. fib, obstructive sleep apnea, cancer of the right eye with prosthesis. - Related Data Home Medications Medication Instructions Recorded Confirmed Tamsulosin HCl [Flomax] 0.4 mg PO DAILY 03/30/15 09/06/20 dilTIAZem HCL [Diltiazem 24Hr ER 120 mg PO DAILY 01/16/16 09/06/20 (Cd)] hydrOXYzine HCL [Atarax] 25 mg PO HS 01/05/19 09/06/20 Albuterol Sulfate [Ventolin HFA] 1 - 2 puff INHALATION Q6H PRN 09/06/20 09/06/20 Betamethasone Dipropionate 1 applic TOPICAL DAILY 09/06/20 09/06/20 [Diprolene AF 0.05% Cream] lisinopriL [Zestril] 10 mg PO DAILY 09/06/20 09/06/20 Previous Rx's Medication Instructions Recorded Cephalexin [Keflex] 500 mg PO Q8HR 21 Days #7 cap 09/11/20 Chlorhexidine Gluconate [Peridex] 15 ml MUCOUS MEM BID 3 Days #1 09/11/20 bottle Nystatin 100,000 Unit/gm Powd 1 applic TOPICAL BID #1 applic 09/11/20 [Mycostatin Powder] Nystatin 100,000Unit/gm Cream 1 applic TOPICAL BID #1 applic 09/11/20 [Mycostatin Cream] Pantoprazole [Protonix] 40 mg PO AC-BRKFST #30 tablet. 09/11/20 Warfarin [Coumadin] 2 mg PO DAILY #30 tab 09/11/20 Cephalexin [Keflex] 500 mg PO Q8HR 10 Days #30 cap 09/27/21 Sulfamethox-Tmp 800-160Mg [Bactrim 1 tab PO Q12HR 10 Days #20 tab 09/27/21 DS 800-160 mg] Allergies Allergy/AdvReac Type Severity Reaction Status Date / Time pneumococcal vaccine Allergy Swelling Verified 09/27/21 10:59 AT SITE OF INJECTION Review of Systems ROS Statement: Those systems with pertinent positive or pertinent negative responses have been documented in the HPI. ROS Other: All systems not noted in ROS Statement are negative. 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 Past Anesthesia/Blood Transfusion Reactions: No Reported Reaction Past Psychological History: Anxiety, Depression Smoking Status: Current every day smoker Past Alcohol Use History: Daily, Heavy Past Drug Use History: Marijuana - Past Family History Brother(s) History Unknown: Yes Family Medical History: Cancer Additional Family Medical History / Comment(s): esophageal, Mother Family Medical History: Renal Disease Additional Family Medical History / Comment(s): Mother at the age of 75yrs. General Exam Limitations: no limitations Course Vital Signs 09/27/21 09/27/21 10:58 13:28 Temperature 97.5 F L Pulse Rate 92 79 Respiratory 20 20 Rate Blood Pressure 140/91 138/79 O2 Sat by Pulse 98 99 Oximetry Procedures - Incision & Drainage Consent Obtained: verbal consent Site: hand Size (cm): 1 Anesthetic Used: lidocaine 1% I&D Cleaning Method: Chloroprep Scalpel Used: #11 I&D Drainage Obtained: Pus, Blood Culture Obtained?: Yes Patient Tolerated Procedure: well, no complications Medical Decision Making - Medical Decision Making 76-year-old male presents the emergency room with complaints of right hand swelling blisterlike lesion to the dorsal aspect of his hand and impaired range of motion. No blunt force trauma. Known history of MRSA. Will check x-ray of right hand. Will check CBC and BMP to evaluate infectious etiology and renal function for antibiotic administration. Will plan for lancing of blister and obtaining culture for tailored antibiotic administration. CBC without leukocytosis. BMP stable. Attempted drainage with puncture with 18- gauge needle without sufficient drainage. Cover to 2 infections and drainage. Tolerated well. Culture obtained. X-ray negative for osteomyelitis fracture or significant soft tissue swelling. Will start on oral antibiotics and follow culture. Encouraged good wound care and to monitor for worsening of infectious symptoms. Case discussed with Dr. Leonardo. - Lab Data Result diagrams: 09/27/21 11:20 09/27/21 11:20 Lab Results 09/27/21 09/27/21 Range/Units 11:20 11:20 WBC 9.9 (3.8-10.6) k/uL RBC 4.52 (4.30-5.90) m/uL Hgb 14.3 (13.0-17.5) gm/dL Hct 42.4 (39.0-53.0) % MCV 93.7 (80.0-100.0) fL MCH 31.5 (25.0-35.0) pg MCHC 33.6 (31.0-37.0) g/dL RDW 12.9 (11.5-15.5) % Plt Count 262 (150-450) k/uL MPV 8.4 Neutrophils % 78 % Lymphocytes % 14 % Monocytes % 6 % Eosinophils % 1 % Basophils % 0 % Neutrophils # 7.7 (1.3-7.7) k/uL Lymphocytes # 1.4 (1.0-4.8) k/uL Monocytes # 0.6 (0-1.0) k/uL Eosinophils # 0.1 (0-0.7) k/uL Basophils # 0.0 (0-0.2) k/uL Sodium 128 L (137-145) mmol/L Potassium 5.1 (3.5-5.1) mmol/L Chloride 96 L (98-107) mmol/L Carbon Dioxide 23 (22-30) mmol/L Anion Gap 9 mmol/L BUN 20 (9-20) mg/dL Creatinine 0.68 (0.66-1.25) mg/dL Est GFR (CKD-EPI)AfAm >90 (>60 ml/min/1.73 sqM) Est GFR (CKD-EPI)NonAf >90 (>60 ml/min/1.73 sqM) Glucose 112 H (74-99) mg/dL Calcium 8.4 (8.4-10.2) mg/dL - Radiology Data Radiology results: report reviewed, image reviewed xr right hand: 1. Slight cortical offset involving the base of the metacarpal. 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 (No point tenderness.) 2. Distress pain and arthropathy. Disposition Clinical Impression: Cellulitis of right hand Disposition: HOME SELF-CARE Condition: Stable Instructions (If sedation given, give patient instructions): Cellulitis (ED) Additional Instructions: Please continue to keep incisions and drained lesion to your right hand covered with dressings. Changes saturated or daily. Continue to monitor for signs of worsening infection including redness, fevers or worsening of pain. Please complete antibiotic course as prescribed. Please return to the Emergency Department if symptoms worsen or any other concerns. Prescriptions: Sulfamethox-Tmp 800-160Mg [Bactrim DS 800-160 mg] 1 tab PO Q12HR 10 Days #20 tab Cephalexin [Keflex] 500 mg PO Q8HR 10 Days #30 cap Is patient prescribed a controlled substance at d/c from ED?: No Referrals: [facility],Clinic [Primary Care Provider] - 1-2 days Time of Disposition: 13:14
[2021-09-27 11:58] LABS: Basophils % (A) 0 %; Eosinophils # (A) 0.1 k/uL (0-0.7); Eosinophils % (A) 1 %; HCT 42.4 % (39.0-53.0); HGB 14.3 gm/dL (13.0-17.5); Lymphocytes # (A) 1.4 k/uL (1.0-4.8); Lymphocytes % (A) 14 %; MCH 31.5 pg (25.0-35.0); MCHC 33.6 g/dL (31.0-37.0); MCV 93.7 fL (80.0-100.0); Mean Platelet Volume 8.4; Monocytes # (A) 0.6 k/uL (0-1.0); Monocytes % (A) 6 %; Neutrophils # (A) 7.7 k/uL (1.3-7.7); Neutrophils % (A) 78 %; Platelet Count 262 k/uL (150-450); RBC 4.52 m/uL (4.30-5.90); RDW 12.9 % (11.5-15.5); WBC 9.9 k/uL (3.8-10.6)
--- NOTE | 2021-09-27 12:07 | XR ---
EXAMINATION TYPE: XR hand limited RT DATE OF EXAM: 09/27/2021 COMPARISON: NONE HISTORY: Pain TECHNIQUE: Three views are submitted. FINDINGS: Diffuse osteopenia with narrowing of all DIP joints, PIP joints and the second through fifth MCP join ts. Vascular calcifications noted. Soft tissue calcification along the dorsum of the DIP joints appea rs chronic. Arthropathy of the first carpometacarpal joint. Slight cortical offset involving the base of the fourth metacarpal. IMPRESSION: 1. Slight cortical offset involving the base of the metacarpal. Represent a fracture of indeterminate age correlate with point tenderness.. 2. Diffuse osteopenia and arthropathy.
[2021-09-27 12:08] LABS: African American GFR (CKD) >90 (>60 ml/min/1.73 sqM); Anion Gap 9 mmol/L; Blood Urea Nitrogen 20 mg/dL (9-20); Calcium 8.4 mg/dL (8.4-10.2); Carbon Dioxide 23 mmol/L (22-30); Chloride 96 mmol/L (98-107); Glucose 112 mg/dL (74-99); Non-African American GFR(CKD) >90 (>60 ml/min/1.73 sqM); Potassium 5.1 mmol/L (3.5-5.1); Sodium 128 mmol/L (137-145)
[2021-09-27] MEDS ORDERED: KETOROLAC 15 MG/ML 1 ML VIAL IVP STA (12:16)
[2021-09-27] MEDS ORDERED: LIDOCAINE 1% INJ 10MG/ML (20 ML MDV) SQ ONE (12:16)
[2021-09-27] MEDS ORDERED: ACET/COD 300 MG/30 MG STARTER PACK 6 TAB BTL PO STA (12:16)
[2021-09-27 13:29] VITALS: BP 138/79; PULSE 79
== END 2021-09-27 13:29 | disposition home or self-care (01) ==
LOC: EC 10:55
DX: L03.113 Cellulitis of right upper limb (principal); I10 Essential (primary) hypertension; F17.200 Nicotine dependence, unspecified, uncomplicated; Z88.7 Allergy status to serum and vaccine
CPT/HCPCS: 36415; 80048; 85025; 87070; 87205; 73120; 10060; 99283; 96374; J2001; J1885

== ENCOUNTER → 2021-12-06 | Outpatient (CLI) | payer OTHER ==
--- NOTE | 2021-12-07 06:34 | MR ---
EXAMINATION TYPE: MR hand RT wo con DATE OF EXAM: 12/06/2021 COMPARISON: None HISTORY: PAIN IN RIGHT HAND Multiplanar multi echo imaging of the right hand performed without contrast. The metacarpals are intact. The fingers and thumb are intact. No fracture seen. There is some diffuse soft tissue swelling in the subcutaneous tissues over the palm of the hand and also at the thumb. No discrete fluid collection. No evidence of bone destruction. No evidence of a soft tissue mass. The carpal bones are intact. Intercarpal joint spaces are fairly normal. There is some osteoarthritis at the first carpometacarpal joint with subchondral cystic changes on both sides of the joint. IMPRESSION: Subcutaneous edema. No discrete mass. Osteoarthritis at the first carpometacarpal joint. No fracture seen.
== END | disposition home or self-care (01) ==
LOC: RADMRIMAIN 10:49
PROVIDERS: ATTEND Orthopaedic Surgery Hand Surgery
DX: M19.041 Primary osteoarthritis, right hand (principal)

== ENCOUNTER 2022-05-02 15:52 | Emergency (ER) | payer OTHER ==
[2022-05-02 16:04] VITALS: TEMP 97.8
[2022-05-02] MEDS ORDERED: predniSONE 50 MG TAB PO STA (16:54)
--- NOTE | 2022-05-02 17:03 | ED ---
General Adult HPI - General Chief complaint: Eye Problems Stated complaint: Lower eyelid swelling Time Seen by Provider: 05/02/22 16:14 Source: patient, RN notes reviewed Mode of arrival: ambulatory Limitations: no limitations - History of Present Illness Initial comments: Patient is a pleasant 76-year-old male presenting to the emergency department lower eyelid swelling. Onset of symptoms was today. Patient does have history of chronic rash related to his psoriasis. Patient recently started tremfeya for his psoriasis yesterday. Patient does have irritation of his skin diffusely, specifically around the face. Patient does frequently scratches eyelids. Patient noticed some swelling of his lower eyelid today. Patient denies any pain from the eye itself. This is the left lower eyelid. No change in vision. 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 - Related Data Home Medications Medication Instructions Recorded Confirmed Tamsulosin HCl [Flomax] 0.4 mg PO DAILY 03/30/15 09/06/20 dilTIAZem HCL [Diltiazem 24Hr ER 120 mg PO DAILY 01/16/16 09/06/20 (Cd)] hydrOXYzine HCL [Atarax] 25 mg PO HS 01/05/19 09/06/20 Albuterol Sulfate [Ventolin HFA] 1 - 2 puff INHALATION Q6H PRN 09/06/20 09/06/20 Betamethasone Dipropionate 1 applic TOPICAL DAILY 09/06/20 09/06/20 [Diprolene AF 0.05% Cream] lisinopriL [Zestril] 10 mg PO DAILY 09/06/20 09/06/20 Previous Rx's Medication Instructions Recorded Cephalexin [Keflex] 500 mg PO Q8HR 21 Days #7 cap 09/11/20 Chlorhexidine Gluconate [Peridex] 15 ml MUCOUS MEM BID 3 Days #1 09/11/20 bottle Nystatin 100,000 Unit/gm Powd 1 applic TOPICAL BID #1 applic 09/11/20 [Mycostatin Powder] Nystatin 100,000Unit/gm Cream 1 applic TOPICAL BID #1 applic 09/11/20 [Mycostatin Cream] Pantoprazole [Protonix] 40 mg PO AC-BRKFST #30 tablet. 09/11/20 Warfarin [Coumadin] 2 mg PO DAILY #30 tab 09/11/20 Cephalexin [Keflex] 500 mg PO Q8HR 10 Days #30 cap 09/27/21 Sulfamethox-Tmp 800-160Mg [Bactrim 1 tab PO Q12HR 10 Days #20 tab 09/27/21 DS 800-160 mg] Allergies Allergy/AdvReac Type Severity Reaction Status Date / Time pneumococcal vaccine Allergy Swelling Verified 05/02/22 16:04 AT SITE OF INJECTION Review of Systems ROS Statement: Those systems with pertinent positive or pertinent negative responses have been documented in the HPI. ROS Other: All systems not noted in ROS Statement are negative. Constitutional: Denies: fever Eyes: Reports: as per HPI. 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 Past Anesthesia/Blood Transfusion Reactions: No Reported Reaction Past Psychological History: Anxiety, Depression Smoking Status: Current every day smoker Past Alcohol Use History: Daily, Heavy Past Drug Use History: Marijuana - Past Family History Brother(s) History Unknown: Yes Family Medical History: Cancer Additional Family Medical History / Comment(s): esophageal, Mother Family Medical History: Renal Disease Additional Family Medical History / Comment(s): Mother at the age of 75yrs. General Exam Limitations: no limitations General appearance: alert, in no apparent distress Head exam: Present: atraumatic Eye exam: Present: other (Prosthetic eye on the right. Left eye without injection. Full range of motion. Pupil is reactive. Funduscopic exam within normal limits. Pressure with Lucas-Pen is 12. There is diffuse facial rash with erythema. This does also involve somewhat the upper eyelid and trace the lower eyelid. ). Absent: scleral icterus, conjunctival injection Pupils: Present: other (The lower part of the left eyelid does have some increased edema without any erythema or warmth or tenderness.) Expanded Pupils: Regular, Round: Left Sclera/Conjunctival: Normal Inspection: Left Posterior chamber: Normal Inspection: Left IOP (L) in mmH Neck exam: Present: normal inspection Respiratory exam: Present: normal lung sounds bilaterally Cardiovascular Exam: Present: regular rate, normal rhythm GI/Abdominal exam: Present: soft. Absent: tenderness Extremities exam: Present: normal inspection Neurological exam: Present: alert Psychiatric exam: Present: normal affect, normal mood Skin exam: Present: rash (Diffuse rash, specifically facial that does cross midline. Rash is mostly erythematous with some plaques) Course Vital Signs 05/02/22 16:01 Temperature 97.8 F Pulse Rate 70 Respiratory 20 Rate Blood Pressure 90/56 O2 Sat by Pulse 98 Oximetry Medical Decision Making - Medical Decision Making Was pt. sent in by a medical professional or institution (Dr. PA, DIRECTOR OF RETAIL ANALYTICS, urgent care, hospital, or assisted...) When possible be specific @ -No Did you speak to anyone other than the patient for history (EMS, parent, family, police, friend...)? What history was obtained from this source @ -No Did you review nursing and triage notes (agree or disagree)? Why? @ -I reviewed and agree with nursing and triage notes Were old charts reviewed (outside hosp., previous admission, EMS record, old EKG, old radiological studies, urgent care reports/EKG's, assisted records)? Report findings @ -No old charts were reviewed Differential Diagnosis (chest pain, altered mental status, abdominal pain women, abdominal pain men, vaginal bleeding, weakness, fever, dyspnea, syncope, headache, dizziness, GI bleed, back pain, seizure, CVA, palpatations, mental health)? @ -not applicable EKG interpreted by me (3pts min.). @ -As above X-rays interpreted by me (1pt min.). @ -None done CT interpreted by me (1pt min.). @ -None done U/S interpreted by me (1pt. min.). @ -None done What testing was considered but not performed or refused? (CT, X-rays, U/S, labs)? Why? @ -None What meds were considered but not given or refused? Why? @ -None Did you discuss the management of the patient with other professionals (professionals i.e. , PA, DIRECTOR OF RETAIL ANALYTICS, lab, RT, psych nurse, social work specialist, plans examiner, teacher, licensed loan officer, senior case manager)? Give summary @ -No Was smoking cessation discussed for >3mins.? @ -No Was critical care preformed (if so, how long)? @ -No Were there social determinants of health that impacted care today? How? (Homelessness, low income, unemployed, alcoholism, drug addiction, transportation, low edu. Level, literacy, decrease access to med. care, shelter, rehab)? @ -No Was there de-escalation of care discussed even if they declined (Discuss DNR or withdrawal of care, Hospice)? DNR status @ -No What co-morbidities impacted this encounter? (DM, HTN, Smoking, COPD, CAD, Cancer, CVA, ARF, Chemo, Hep., AIDS, mental health diagnosis, sleep apnea, morbid obesity)? @ -None Was patient admitted / discharged? Hospital course, mention meds given and route, prescriptions, significant lab abnormalities, going to OR and other pertinent info. @ -Patient is rash with history of psoriasis consistent with previous. No visual change. No eye pain. Patient only complains of some increased edema to the left lower eyelid. Patient does admit to frequently scratching his left eye secondary to rash. Symptoms consistent with edema secondary to patient itching the eye. No signs of infection. Undiagnosed new problem with uncertain prognosis? @ -No Drug Therapy requiring intensive monitoring for toxicity (Heparin, Nitro, Insulin, Cardizem)? @ -No Were any procedures done? @ -No Diagnosis/symptom? @ -Eyelid edema Acute, or Chronic, or Acute on Chronic? @ -Acute Uncomplicated (without systemic symptoms) or Complicated (systemic symptoms)? @ -default Side effects of treatment? @ -No Exacerbation, Progression, or Severe Exacerbation? @ -No Poses a threat to life or bodily function? How? (Chest pain, [place], [place], pneumonia, PE, COPD, DKA, ARF, appy, cholecystitis, CVA, Diverticulitis, Homicidal, Suicidal, threat to staff... and all critical care pts) @ -No Disposition Clinical Impression: Edema of lower eyelid Disposition: HOME SELF-CARE Condition: Stable Instructions (If sedation given, give patient instructions): Edema (ED) Additional Instructions: Please do follow-up with primary care physician in the next day or 2 for re check. Also follow-up with ophthalmology, number provided. Return for change in vision, pain, increased redness or swelling, fever, worsening symptoms or any other concerns. Is patient prescribed a controlled substance at d/c from ED?: No Referrals: [facility],Clinic [Primary Care Provider] - 1-2 days Claude Benavides MD [STAFF PHYSICIAN] - 1-2 days Time of Disposition: 17:02
[2022-05-02 17:44] VITALS: BP 109/68; PULSE 69; RESP 16
== END 2022-05-02 17:44 | disposition home or self-care (01) ==
LOC: EC 15:52
DX: H02.845 Edema of left lower eyelid (principal); I48.91 Unspecified atrial fibrillation; I10 Essential (primary) hypertension; M19.90 Unspecified osteoarthritis, unspecified site; F41.9 Anxiety disorder, unspecified; F32.A Depression, unspecified; F17.200 Nicotine dependence, unspecified, uncomplicated; F12.90 Cannabis use, unspecified, uncomplicated; Z88.7 Allergy status to serum and vaccine; Z79.899 Other long term (current) drug therapy
CPT/HCPCS: 99283; J7512

== ENCOUNTER 2022-08-28 12:03 | Emergency (ER) | payer OTHER ==
[2022-08-28] MEDS ORDERED: SODIUM CHLORIDE 0.9% 500 ML 500 ML IV STA (12:44)
--- NOTE | 2022-08-28 13:15 | ED ---
General Adult HPI - General Chief complaint: Recheck/Abnormal Lab/Rx Stated complaint: Sodium Low Time Seen by Provider: 08/28/22 12:20 Source: patient, RN notes reviewed, old records reviewed Mode of arrival: ambulatory Limitations: no limitations - History of Present Illness Initial comments: This is a 77-year-old male who presents emergency department with past mental history significant for smoking. Patient comes in today because he's been feeling weak for the last 2 days he went for his regular check up with his physician in blood work showed that he was hyponatremic so they sent him in patient denies any recent fever chills or cough. Patient denies any chest pain difficulty breathing or shortness of breath. Patient denies any abdominal pain patient denies nausea vomiting diarrhea. Patient denies headache patient denies numbness weakness. Patient denies any syncopal or near syncopal episode. - Related Data Home Medications Medication Instructions Recorded Confirmed Tamsulosin HCl [Flomax] 0.4 mg PO DAILY 03/30/15 08/28/22 dilTIAZem HCL [Diltiazem 24Hr ER 120 mg PO DAILY 01/16/16 08/28/22 (Cd)] hydrOXYzine HCL [Atarax] 25 mg PO HS 01/05/19 08/28/22 lisinopriL [Zestril] 10 mg PO DAILY 09/06/20 08/28/22 Clobetasol Propionate [Temovate 1 applic TOPICAL BID 08/28/22 08/28/22 0.05% Oint] Ibuprofen [Motrin Ib] 600 mg PO TID 08/28/22 08/28/22 Lanolin/Mineral Oil [Eucerin 1 applic TOPICAL BID 08/28/22 08/28/22 Original Lotion] Triamcinolone 0.1% Ointment 1 applic TOPICAL BID 08/28/22 08/28/22 [Kenalog 0.1% Ointment] Warfarin [Coumadin] 2 mg PO SUMOTUWETHSA@2100 08/28/22 08/28/22 Allergies Allergy/AdvReac Type Severity Reaction Status Date / Time pneumococcal vaccine Allergy Swelling Verified 08/28/22 13:26 AT SITE OF INJECTION Review of Systems ROS Statement: Those systems with pertinent positive or pertinent negative responses have been documented in the HPI. ROS Other: All systems not noted in ROS Statement are negative. 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 Past Anesthesia/Blood Transfusion Reactions: No Reported Reaction Past Psychological History: Anxiety, Depression Smoking Status: Current every day smoker Past Alcohol Use History: Daily, Heavy Past Drug Use History: Marijuana - Past Family History Brother(s) History Unknown: Yes Family Medical History: Cancer Additional Family Medical History / Comment(s): esophageal, Mother Family Medical History: Renal Disease Additional Family Medical History / Comment(s): Mother at the age of 75yrs. General Exam - General Exam Comments Initial Comments: GENERAL: Patient is well-developed and well-nourished. Patient is nontoxic and well- hydrated and is in mild distress. ENT: Neck is soft and supple. No significant lymphadenopathy is noted. Oropharynx is clear. Moist mucous membranes. Neck has full range of motion without eliciting any pain. EYES: The sclera were anicteric and conjunctiva were pink and moist. Extraocular movements were intact and pupils were equal round and reactive to light. Eyelids were unremarkable. PULMONARY: Unlabored respirations. Good breath sounds bilaterally. No audible rales rhonchi or wheezing was noted. CARDIOVASCULAR: There is a regular rate and rhythm without any murmurs gallops or rubs. ABDOMEN: Soft and nontender with normal bowel sounds. SKIN: Skin is clear with no lesions or rashes and otherwise unremarkable. NEUROLOGIC: Patient is alert and oriented x3. Cranial nerves II through XII are grossly intact. Motor and sensory are also intact. Normal speech, volume and content. Symmetrical smile. MUSCULOSKELETAL: Normal extremities with adequate strength and full range of motion. LYMPHATICS: No significant lymphadenopathy is noted PSYCHIATRIC: Normal psychiatric evaluation. Limitations: no limitations Course Vital Signs 08/28/22 08/28/22 08/28/22 12:10 12:34 13:38 Temperature 98.3 F 97.1 F L 97.7 F Pulse Rate 62 52 L 46 L Respiratory 20 18 18 Rate Blood Pressure 118/69 117/79 129/86 O2 Sat by Pulse 99 99 98 Oximetry 08/28/22 14:03 Temperature Pulse Rate 48 L Respiratory 18 Rate Blood Pressure 144/84 O2 Sat by Pulse 99 Oximetry Medical Decision Making - Medical Decision Making EKG was interpreted by myself. EKG shows atrial fibrillation which she's had in the past. Rate is 47 bpm QRS is 90 QT interval is 452 QTC is 414. EKG shows no ST segment elevation or depression Was pt. sent in by a medical professional or institution (, PA, PATENT SOLICITOR, urgent care, hospital, or intermediate...) When possible be specific @ -Sent in by her primary medical care doctor Did you speak to anyone other than the patient for history (EMS, parent, family, police, friend...)? What history was obtained from this source @ -No Did you review nursing and triage notes (agree or disagree)? Why? @ -I reviewed and agree with nursing and triage notes Were old charts reviewed (outside hosp., previous admission, EMS record, old EKG, old radiological studies, urgent care reports/EKG's, intermediate records)? Report findings @ -I reviewed prior lab work done prior radiological studies Differential Diagnosis (chest pain, altered mental status, abdominal pain women, abdominal pain men, vaginal bleeding, weakness, fever, dyspnea, syncope, headache, dizziness, GI bleed, back pain, seizure, CVA, palpatations, mental health, musculoskeletal)? @ -Differential Weakness: Hypoglycemia, shock, sepsis, hyponatremia, anemia, infection, NC, ETOH, adverse medicine reaction, overdose, stroke, this is not meant to be an all-inclusive list. EKG interpreted by me (3pts min.). @ -As above X-rays interpreted by me (1pt min.). @ -Chest x-ray showed no acute abnormality CT interpreted by me (1pt min.). @ -None done U/S interpreted by me (1pt. min.). @ -None done What testing was considered but not performed or refused? (CT, X-rays, U/S, labs)? Why? @ -None What meds were considered but not given or refused? Why? @ -None Did you discuss the management of the patient with other professionals (professionals i.e. DrElaine, PA, PATENT SOLICITOR, lab, RT, psych nurse, social media marketing manager, cardiopulmonary physical therapist, teacher, corrections officer, shoe parts caser)? Give summary @ -No Was smoking cessation discussed for >3mins.? @ -No Was critical care preformed (if so, how long)? @ -No Were there social determinants of health that impacted care today? How? (Homele ssness, low income, unemployed, alcoholism, drug addiction, transportation, low edu. Level, literacy, decrease access to med. care, alf, rehab)? @ -No Was there de-escalation of care discussed even if they declined (Discuss DNR or withdrawal of care, Hospice)? DNR status @ -No What co-morbidities impacted this encounter? (DM, HTN, Smoking, COPD, CAD, Cancer, CVA, ARF, Chemo, Hep., AIDS, mental health diagnosis, sleep apnea, morbid obesity)? @ -None Was patient admitted / discharged? Hospital course, mention meds given and route, prescriptions, significant lab abnormalities, going to OR and other pertinent info. @ -Spoke to the patient about his sodium of 128 and how his sodium is been quite low on every visit prior and that this can be worked up as an outpatient he was very happy with that 100 discharged home to follow-up with his primary Undiagnosed new problem with uncertain prognosis? @ -No Drug Therapy requiring intensive monitoring for toxicity (Heparin, Nitro, Insulin, Cardizem)? @ -No Were any procedures done? @ -No Diagnosis/symptom? @ -Generalized weakness Acute, or Chronic, or Acute on Chronic? @ -Acute Uncomplicated (without systemic symptoms) or Complicated (systemic symptoms)? @ -Complicated Side effects of treatment? @ -No Exacerbation, Progression, or Severe Exacerbation? @ -No Poses a threat to life or bodily function? How? (Chest pain, [place], [place], pneumonia, PE, COPD, DKA, ARF, appy, cholecystitis, CVA, Diverticulitis, Homicidal, Suicidal, threat to staff... and all critical care pts) @ -No Diagnosis/symptom? @ -Hyponatremia Acute, or Chronic, or Acute on Chronic? @ -Chronic Uncomplicated (without systemic symptoms) or Complicated (systemic symptoms)? @ -Uncomplicated Side effects of treatment? @ -none Exacerbation, Progression, or Severe Exacerbation] @ -no Poses a threat to life or bodily function? @ -no - Lab Data Result diagrams: 08/28/22 12:55 08/28/22 12:55 Lab Results 08/28/22 08/28/22 08/28/22 Range/Units 12:55 12:55 12:55 WBC 5.0 (3.8-10.6) k/uL RBC 4.28 L (4.30-5.90) m/uL Hgb 14.4 (13.0-17.5) gm/dL Hct 40.2 (39.0-53.0) % MCV 94.0 (80.0-100.0) fL MCH 33.7 (25.0-35.0) pg MCHC 35.8 (31.0-37.0) g/dL RDW 12.8 (11.5-15.5) % Plt Count 133 L (150-450) k/uL MPV 9.6 Neutrophils % 51 % Lymphocytes % 32 % Monocytes % 11 % Eosinophils % 4 % Basophils % 1 % Neutrophils # 2.5 (1.3-7.7) k/uL Lymphocytes # 1.6 (1.0-4.8) k/uL Monocytes # 0.5 (0-1.0) k/uL Eosinophils # 0.2 (0-0.7) k/uL Basophils # 0.0 (0-0.2) k/uL PT 23.3 H (9.0-12.0) sec INR 2.4 H (<1.2) APTT 30.8 H (22.0-30.0) sec Sodium (137-145) mmol/L Potassium (3.5-5.1) mmol/L Chloride (98-107) mmol/L Carbon Dioxide (22-30) mmol/L Anion Gap mmol/L BUN (9-20) mg/dL Creatinine (0.66-1.25) mg/dL Est GFR (CKD-EPI)AfAm (>60 ml/min/1.73 sqM) Est GFR (CKD-EPI)NonAf (>60 ml/min/1.73 sqM) Glucose (74-99) mg/dL Plasma Lactic Acid Deandre (0.7-2.0) mmol/L Calcium (8.4-10.2) mg/dL Magnesium (1.6-2.3) mg/dL Total Bilirubin (0.2-1.3) mg/dL AST (17-59) U/L ALT (4-49) U/L Alkaline Phosphatase (38-126) U/L Troponin I (0.000-0.034) ng/mL Total Protein (6.3-8.2) g/dL Albumin (3.5-5.0) g/dL Urine Color Yellow Urine Appearance Clear (Clear) Urine pH 6.5 (5.0-8.0) Ur Specific [place] 1.017 (1.001-1.035) Urine Protein Negative (Negative) Urine Glucose (UA) 2+ H (Negative) Urine Ketones Negative (Negative) Urine Blood Negative (Negative) Urine Nitrite Negative (Negative) Urine Bilirubin Negative (Negative) Urine Urobilinogen <2.0 (<2.0) mg/dL Ur Leukocyte Esterase Negative (Negative) 08/28/22 08/28/22 08/28/22 Range/Units 12:55 12:55 12:55 WBC (3.8-10.6) k/uL RBC (4.30-5.90) m/uL Hgb (13.0-17.5) gm/dL Hct (39.0-53.0) % MCV (80.0-100.0) fL MCH (25.0-35.0) pg MCHC (31.0-37.0) g/dL RDW (11.5-15.5) % Plt Count (150-450) k/uL MPV Neutrophils % % Lymphocytes % % Monocytes % % Eosinophils % % Basophils % % Neutrophils # (1.3-7.7) k/uL Lymphocytes # (1.0-4.8) k/uL Monocytes # (0-1.0) k/uL Eosinophils # (0-0.7) k/uL Basophils # (0-0.2) k/uL PT (9.0-12.0) sec INR (<1.2) APTT (22.0-30.0) sec Sodium 128 L (137-145) mmol/L Potassium 4.2 (3.5-5.1) mmol/L Chloride 99 (98-107) mmol/L Carbon Dioxide 22 (22-30) mmol/L Anion Gap 7 mmol/L BUN 13 (9-20) mg/dL Creatinine 0.74 (0.66-1.25) mg/dL Est GFR (CKD-EPI)AfAm >90 (>60 ml/min/1.73 sqM) Est GFR (CKD-EPI)NonAf 89 (>60 ml/min/1.73 sqM) Glucose 123 H (74-99) mg/dL Plasma Lactic Acid Deandre 1.1 (0.7-2.0) mmol/L Calcium 8.4 (8.4-10.2) mg/dL Magnesium 1.8 (1.6-2.3) mg/dL Total Bilirubin 0.7 (0.2-1.3) mg/dL AST 26 (17-59) U/L ALT 24 (4-49) U/L Alkaline Phosphatase 112 (38-126) U/L Troponin I <0.012 (0.000-0.034) ng/mL Total Protein 6.7 (6.3-8.2) g/dL Albumin 3.5 (3.5-5.0) g/dL Urine Color Urine Appearance (Clear) Urine pH (5.0-8.0) Ur Specific [place] (1.001-1.035) Urine Protein (Negative) Urine Glucose (UA) (Negative) Urine Ketones (Negative) Urine Blood (Negative) Urine Nitrite (Negative) Urine Bilirubin (Negative) Urine Urobilinogen (<2.0) mg/dL Ur Leukocyte Esterase (Negative) Disposition Clinical Impression: Bradycardia, Weakness, Hyponatremia Disposition: HOME SELF-CARE Condition: Good Instructions (If sedation given, give patient instructions): Hyponatremia (ED), Bradycardia (ED) Is patient prescribed a controlled substance at d/c from ED?: No Referrals: [facility],Clinic [Primary Care Provider] - 1-2 days Jaun Sherman DO [STAFF PHYSICIAN] - 1-2 days Time of Disposition: 15:04
[2022-08-28 13:25] LABS: Basophils % (A) 1 %; Eosinophils # (A) 0.2 k/uL (0-0.7); Eosinophils % (A) 4 %; HCT 40.2 % (39.0-53.0); HGB 14.4 gm/dL (13.0-17.5); Lymphocytes # (A) 1.6 k/uL (1.0-4.8); Lymphocytes % (A) 32 %; MCH 33.7 pg (25.0-35.0); MCHC 35.8 g/dL (31.0-37.0); Mean Platelet Volume 9.6; Monocytes # (A) 0.5 k/uL (0-1.0); Monocytes % (A) 11 %; Neutrophils # (A) 2.5 k/uL (1.3-7.7); Neutrophils % (A) 51 %; Platelet Count 133 k/uL (150-450); RBC 4.28 m/uL (4.30-5.90); RDW 12.8 % (11.5-15.5)
[2022-08-28 13:43] LABS: ALT 24 U/L (4-49); AST 26 U/L (17-59); African American GFR (CKD) >90 (>60 ml/min/1.73 sqM); Albumin 3.5 g/dL (3.5-5.0); Alkaline Phosphatase 112 U/L (38-126); Anion Gap 7 mmol/L; Blood Urea Nitrogen 13 mg/dL (9-20); Calcium 8.4 mg/dL (8.4-10.2); Carbon Dioxide 22 mmol/L (22-30); Chloride 99 mmol/L (98-107); Glucose 123 mg/dL (74-99); INR 2.4 (<1.2); Magnesium 1.8 mg/dL (1.6-2.3); Non-African American GFR(CKD) 89 (>60 ml/min/1.73 sqM); Partial Thromboplastin Time 30.8 sec (22.0-30.0); Potassium 4.2 mmol/L (3.5-5.1); Prothrombin Time 23.3 sec (9.0-12.0); Sodium 128 mmol/L (137-145); Total Bilirubin 0.7 mg/dL (0.2-1.3); Total Protein 6.7 g/dL (6.3-8.2)
[2022-08-28 13:48] LABS: Appearance,Urine Clear (Clear); Bilirubin,Urine Negative (Negative); Blood,Urine Negative (Negative); Color,Urine Yellow; Glucose,Urine (UA) 2+ (Negative); Ketones,Urine Negative (Negative); Leukocyte Esterase,Urine Negative (Negative); Nitrite,Urine Negative (Negative); PH, Urine 6.5 (5.0-8.0); Protein,Urine Negative (Negative); Specific Gravity,Urine 1.017 (1.001-1.035); Urobilinogen,Urine <2.0 mg/dL (<2.0)
--- NOTE | 2022-08-28 13:54 | XR ---
EXAMINATION TYPE: XR chest 2V DATE OF EXAM: 08/28/2022 1:51 PM COMPARISON: Chest radiographs from 08/15/2021 TECHNIQUE: XR chest 2V Frontal and lateral views of the chest. CLINICAL INDICATION:Male, 77 years old with history of Weakness; FINDINGS: Lungs/Pleura: There is flattening of the diaphragm with increased lucency of the lungs. No evidence o f pneumothorax, pleural effusion or focal consolidation. Pulmonary vascularity: Unremarkable. Heart/mediastinum: Cardiomediastinal silhouette is prominent in size. Atherosclerotic calcifications are seen in the aorta. Musculoskeletal: No acute osseous pathology. Right shoulder prosthesis. Suspected post surgical nolan es of the left AC joint redemonstrated. IMPRESSION: 1. No acute cardiopulmonary disease process. 2. COPD changes.
[2022-08-28 15:03] VITALS: BP 158/90; PULSE 61; RESP 19; TEMP 97.6
== END 2022-08-28 15:22 | disposition home or self-care (01) ==
LOC: EC 12:03
DX: R00.1 Bradycardia, unspecified (principal); R53.1 Weakness; E87.1 Hypo-osmolality and hyponatremia; J44.9 Chronic obstructive pulmonary disease, unspecified; I48.91 Unspecified atrial fibrillation; I10 Essential (primary) hypertension; M19.90 Unspecified osteoarthritis, unspecified site; G47.30 Sleep apnea, unspecified; F17.200 Nicotine dependence, unspecified, uncomplicated; F12.90 Cannabis use, unspecified, uncomplicated; Z79.899 Other long term (current) drug therapy; Z79.1 Long term (current) use of non-steroidal anti-inflammatories (NSAID); Z86.59 Personal history of other mental and behavioral disorders; Z88.7 Allergy status to serum and vaccine
CPT/HCPCS: 36415; 71046; 80053; 81003; 83605; 83735; 84484; 85025; 85610; 85730; 93005; 99284

== ENCOUNTER → 2022-11-26 | Outpatient (CLI) | payer OTHER ==
--- NOTE | 2022-11-26 14:47 | MR ---
EXAMINATION TYPE: MR Prostate wo/w con DATE OF EXAM: 11/26/2022 8:27 AM COMPARISON: None. CLINICAL INDICATION:Male, 77 years old with history of R97.20 ELEVATED PSA; Elevated PSA. TECHNIQUE: Multi-planar, multi-sequence imaging of the pelvis is performed prior to and following the uncomplicated administration of bolus intravenous gadolinium. CONTRAST: 8 Gadavist Interpretive Criteria: PI-RADS v2.1 SERUM PSA: 8.22 09/11/2022. 6.28 on 01/24/2022. SURGICAL PATHOLOGY: No data available. FINDINGS: Prostatic dimensions: 4.1 x 4.8 x 4.1 cm. "Bullet" Volume:52.81 (PSA density=0.16 ng/mL/mL) CENTRAL GLAND (Central and Transition Zones/CZ+TZ): There are 2 areas of high DWI low ADC signal on the right anterior mid gland/apex measuring up to 9 x 10 mm and on the left measuring 13 x 10 mm. There is associated lower T2 signal which is not definit ively within a BPH nodule. (PI-RADS 4) PERIPHERAL ZONE (PZ): Bilateral linear, indistinct wedgelike areas of low ADC, and low T2 signal, No evidence of masslike a bnormality, or localized perfusional hypervascularity, to further suggest a focus of clinically signi ficant prostate cancer. (PI-RADS 2) SEMINAL VESICLES (SV): Symmetric and unremarkable. PERIPROSTATIC TISSUES: Unremarkable. LYMPH NODES: No enlarged pelvic lymph node. REMAINING PELVIS: Bladder wall is within normal limits given distention. No abnormal free or organized intrapelvic fluid collection. No pathologic bowel dilation or mural thickening. No hernia visualized OSSEOUS STRUCTURES: No suspicious osseous abnormality. IMPRESSION: 1. PI-RADS 4 lesions right anterior mid gland/apex measuring 9 x 10 mm and left anterior mid gland/ap ex measuring 13 x 10 mm. 2. Moderate BPH, estimated gland volume 52.81 mL. 3. No suspicious osseous lesion. No lymphadenopathy. No evidence of prostate adenocarcinoma involving the periprostatic tissues.
== END | disposition home or self-care (01) ==
LOC: RADMRIMAIN 07:13
PROVIDERS: ATTEND Urology
DX: N40.0 Benign prostatic hyperplasia without lower urinary tract symptoms (principal); R97.20 Elevated prostate specific antigen [PSA]
CPT/HCPCS: 72197; A9585

== ENCOUNTER → 2022-12-23 | Outpatient (CLI) | payer OTHER ==
[2022-12-23 19:05] LABS: Basophils # (A) 0.09 X 10*3/uL (0.00-0.10); Basophils % (A) 1.6 %; Eosinophils % (A) 5.5 %; HGB 14.8 g/dL (13.0-17.0); Lymphocytes # (A) 1.94 X 10*3/uL (0.90-5.00); Lymphocytes % (A) 35.3 %; MCH 31.6 pg (27.0-32.0); MCHC 34.4 g/dL (32.0-37.0); MCV 91.7 FL (80.0-97.0); Mean Platelet Volume 12.3 FL (9.5-12.2); Monocytes # (A) 0.61 X 10*3/uL (0.20-1.00); Monocytes % (A) 11.1 %; NRBC Per 100 WBC 0 X 10*3/uL (0.00-0.01); Neutrophils # (A) 2.55 X 10*3/uL (1.80-7.70); Neutrophils % (A) 46.3 %; Platelet Count 163 X 10*3/uL (140-440); RBC 4.69 X 10*6/uL (4.40-5.60); RDW 13.2 % (11.5-14.5)
[2022-12-24 02:26] LABS: BUN/Creat Ratio 15.33 Ratio (12.00-20.00); Blood Urea Nitrogen 13.8 mg/dL (9.0-27.0); Calcium 9.2 mg/dL (8.7-10.3); Carbon Dioxide 23.7 mmol/L (21.6-31.8); Chloride 98 mmol/L (96-109); Glucose 98 mg/dL (70-110); Potassium 4.4 mmol/L (3.5-5.5); Sodium 135 mmol/L (135-145)
[2022-12-24 02:54] LABS: Appearance,Urine Turbid (Clear); Bilirubin,Urine Small (Negative); Blood,Urine Negative (Negative); Color,Urine Dark Yellow (Yellow); Ketones,Urine Trace (Negative); Nitrite,Urine Negative (Negative); PH, Urine 5.5; Specific Gravity,Urine 1.028 (1.001-1.030)
[2022-12-24 03:03] LABS: Bacteria,Urine None Seen (None Seen)
== END | disposition home or self-care (01) ==
LOC: LABPAT 15:50
PROVIDERS: ATTEND Family Medicine
DX: Z01.812 Encounter for preprocedural laboratory examination (principal); R97.20 Elevated prostate specific antigen [PSA]
CPT/HCPCS: 36415; 80048; 81001; 85025; 87086

== ENCOUNTER 2022-12-30 10:16 | Day surgery (SDC) | payer OTHER ==
--- NOTE | 2022-12-25 12:23 | P.HPIHPCON ---
History of Present Illness H&P Date: 12/25/22 Chief Complaint: Elevated PSA This is a 77-year-old male with history of elevated PSA underwent a prostate MRI that showed evidence of a PIRAD 4 lesion, discussed with him given this finding the option of an MRI fusion biopsy aware of the risk which includes but not limited to bleeding, infection. He understood all the risk and agreed to proceed Consent for Procedure: I have explained the operation/procedure to the patient, including the risks, benefits, side effects, alternative therapies (including not receiving the proposed treatment or service), the likelihood of the patient achieving his/her goals, and potential recuperation problems for the procedure/sedation/analgesia, as well as any blood products, if indicated. I also explained to the patient the risks, benefits and side effects of the alternatives, as well as the risks related to not receiving the proposed procedure, care, treatment, or services. 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 Past Anesthesia/Blood Transfusion Reactions: No Reported Reaction Past Psychological History: Anxiety, Depression Smoking Status: Current every day smoker Past Alcohol Use History: Daily, Heavy Past Drug Use History: Marijuana - Past Family History Brother(s) History Unknown: Yes Family Medical History: Cancer Additional Family Medical History / Comment(s): esophageal, Mother Family Medical History: Renal Disease Additional Family Medical History / Comment(s): Mother at the age of 75yrs. Medications and Allergies Home Medications Medication Instructions Recorded Confirmed Type Tamsulosin HCl [Flomax] 0.4 mg PO DAILY 03/30/15 08/28/22 History dilTIAZem HCL [Diltiazem 24Hr ER 120 mg PO DAILY 01/16/16 08/28/22 History (Cd)] hydrOXYzine HCL [Atarax] 25 mg PO HS 01/05/19 08/28/22 History lisinopriL [Zestril] 10 mg PO DAILY 09/06/20 08/28/22 History Clobetasol Propionate [Temovate 1 applic TOPICAL BID 08/28/22 08/28/22 History 0.05% Oint] Ibuprofen [Motrin Ib] 600 mg PO TID 08/28/22 08/28/22 History Lanolin/Mineral Oil [Eucerin 1 applic TOPICAL BID 08/28/22 08/28/22 History Original Lotion] Triamcinolone 0.1% Ointment 1 applic TOPICAL BID 08/28/22 08/28/22 History [Kenalog 0.1% Ointment] Warfarin [Coumadin] 2 mg PO SUMOTUWETHSA@2100 08/28/22 08/28/22 History Allergies Allergy/AdvReac Type Severity Reaction Status Date / Time pneumococcal vaccine Allergy Swelling Verified 08/28/22 13:26 AT SITE OF INJECTION Surgical - Exam - General no distress, no pain - Eyes normal ocular movement, no pale - ENT normal nares, normal mucosa - Respiratory normal expansion, normal respiratory effort - Abdomen Abdomen: soft, non tender - Psychiatric oriented to time, oriented to person, oriented to place Assessment and Plan Assessment: OR for MRI fusion biopsy
[2022-12-29 09:31] VITALS: BMI 22.4
[~2022-12-30 10:16] MED LIST changes: +GENTAMICIN 120 MG in SODIUM CHLORIDE 0.9% 100 ML IVPB PRN; +HYDROmorphone 0.5 MG/0.5 ML SYRINGE IVP PRN
[2022-12-30 10:56] VITALS: TEMP 97.5
[2022-12-30] MEDS ORDERED: DEXAMETHASONE SOD PHOSPHATE 4 MG/ML 1 ML VIAL IVP ONE (11:08)
[2022-12-30] MEDS ORDERED: ONDANSETRON 4 MG/2 ML VIAL IVP ONE (11:08)
[2022-12-30] MEDS ORDERED: ONDANSETRON 4 MG/2 ML VIAL ONE (11:09)
[2022-12-30] MEDS ORDERED: PROPOFOL 10 MG/ML 20 ML VIAL IV ONE (11:34)
--- NOTE | 2022-12-30 11:58 | P.OP ---
Date of Procedure: 12/30/22 Preoperative Diagnosis: Elevated PSA Postoperative Diagnosis: Same Procedure(s) Performed: MRI fusion biopsy of the prostate Implants: none Anesthesia: MAC Surgeon: Stone Fitzgerald Estimated Blood Loss (ml): 0 Pathology: other (prostate biopsies) Condition: stable Disposition: PACU Indications for Procedure: This is a 77-year-old male with history of elevated PSA underwent a prostate MRI that showed evidence of a PIRAD 4 lesion, discussed with him given this finding the option of an MRI fusion biopsy aware of the risk which includes but not limited to bleeding, infection. He understood all the risk and agreed to proceed Description of Procedure: The patient was taken to the operating room and placed in the left lateral decubitus position. The TOPSEC transrectal ultrasound probe was placed intrarectally. It was then placed within the stand of the [employer] MRI/TRUS Fusion for Prostate Biopsy system. The prostate was imaged in both the axial and sagittal planes,L. Using the Biopsy gun, 3 biopsies were taken from each of the lesion. There was one lesion along the right one along the left anterior prostate . The remaining 12 biopsies of the peripheral zone were obtained utilizing a standard template. Once the procedure was completed, the ultrasound probe was removed. The patient tolerated the procedure well was taken to the recovery room stable condition
[2022-12-30 12:22] VITALS: BP 132/87; PULSE 74; RESP 16
[2022-12-30 13:06] LABS: INR 1.3 (<1.2); Prothrombin Time 13.7 sec (10.0-12.5)
== END 2022-12-30 12:53 | disposition home or self-care (01) ==
LOC: OR 10:16
PROVIDERS: ATTEND Urology
DX: C61 Malignant neoplasm of prostate (principal); I48.91 Unspecified atrial fibrillation; I10 Essential (primary) hypertension; M19.90 Unspecified osteoarthritis, unspecified site; G47.30 Sleep apnea, unspecified; F41.9 Anxiety disorder, unspecified; F32.A Depression, unspecified; F17.200 Nicotine dependence, unspecified, uncomplicated; F10.90 Alcohol use, unspecified, uncomplicated; Z79.899 Other long term (current) drug therapy
CPT/HCPCS: 55700; 88344; 85610; 88305; J1100; J2405; J1580; J2704

== ENCOUNTER → 2023-03-26 | Outpatient (CLI) | payer OTHER ==
[2023-03-27 02:18] LABS: HCT 41.1 % (39.6-50.0); HGB 13.9 g/dL (13.0-17.0); MCH 31.4 pg (27.0-32.0); MCHC 33.8 g/dL (32.0-37.0); Mean Platelet Volume 12.7 FL (9.5-12.2); NRBC Per 100 WBC 0 X 10*3/uL (0.00-0.01); Platelet Count 155 X 10*3/uL (140-440); RBC 4.42 X 10*6/uL (4.40-5.60); RDW 13.1 % (11.5-14.5); WBC 6.09 X 10*3/uL (4.50-10.00)
[2023-03-27 03:03] LABS: ALT 29 U/L (10-49); AST 25 U/L (14-35); Albumin 4.1 g/dL (3.8-4.9); Albumin/Globulin Ratio 1.28 Ratio (1.60-3.17); Alkaline Phosphatase 167 U/L (41-126); BUN/Creat Ratio 10.64 Ratio (12.00-20.00); Bilirubin, Conjugated 0.46 mg/dL (0.20-0.40); Bilirubin,Unconjugated 0.24 mg/dL (0.20-1.00); Blood Urea Nitrogen 11.7 mg/dL (9.0-27.0); Calcium 9.2 mg/dL (8.7-10.3); Carbon Dioxide 24.5 mmol/L (21.6-31.8); Chloride 98 mmol/L (96-109); Globulin 3.2 g/dL (1.6-3.3); Glucose 177 mg/dL (70-110); Potassium 4.3 mmol/L (3.5-5.5); Sodium 135 mmol/L (135-145); Total Bilirubin 0.7 mg/dL (0.3-1.2); Total Protein 7.3 g/dL (6.2-8.2)
[2023-03-27 03:05] LABS: Hepatitis B Surface Antigen Nonreactive; Hepatitis C IgG Antibody Nonreactive
[2023-03-27 03:14] LABS: Hepatitis B Surface AB- Quant 3.5 mIU/mL
== END | disposition home or self-care (01) ==
LOC: LABWHC1 16:38
PROVIDERS: ATTEND Nurse Practitioner Family
DX: Z51.81 Encounter for therapeutic drug level monitoring (principal); Z79.899 Other long term (current) drug therapy
CPT/HCPCS: 36415; 80048; 80076; 85027; 86704; 86706; 86803; 87340

== ENCOUNTER → 2023-04-17 | Outpatient (CLI) | payer OTHER ==
[2023-04-17 18:44] LABS: Chol/HDL Ratio 2.78 Ratio; LDL Cholesterol,Calculated 58.8 mg/dL (0.0-131.0)
== END | disposition home or self-care (01) ==
LOC: LABWHC1 15:00
PROVIDERS: ATTEND Nurse Practitioner Family
DX: Z51.81 Encounter for therapeutic drug level monitoring (principal); Z79.899 Other long term (current) drug therapy
CPT/HCPCS: 36415; 80061; 86480

== ENCOUNTER 2023-06-22 19:59 | Outpatient (CLI) | payer OTHER ==
--- NOTE | 2023-06-28 23:05 | P.PCN ---
Date of Procedure: 06/22/23 Operative Findings: Polysomnography report Date of the service is 06/22/2023 History This is a 77-year-old male patient with known history of COPD and obstructive sleep apnea. The patient has an FEV1 of 56% of predicted. In regards to obstructive sleep apnea, the patient is being treated with a DeVibliss BiPAP unit which is set at a pressure of 14 over 10 cm of water and the patient was using an AirFit F20 fullface mask. [facility] The patient wanted to update his BiPAP unit and for that reason a polysomnography was ordered. Comorbid conditions include hypertension, chronic A-fib, COPD, chronic anxiety/depression, cannabis use and the patient smokes around 1-2 joints on a daily basis along with a history of osteoarthritis Pertinent physical findings The patient's height is 6 feet and 2 inches, weight is 196 pounds with a BMI of 21.3 Technical description The patient was studied using a standard complex polysomnography protocol that included recording of the 2 EKG, Central, occipital and frontal EEG, right and left outer canthus EOG, submental EMG, right and left anterior tibialis EMG, respiratory airflow by thermocouple and or pressure/flow transducer, respiratory efforts by abdominal and thoracic PVDF belts, oxygen saturation by cable oximetry. Position by observation synchronized the PSG. Equipment used: [employer]. Sleep architecture The total recording duration was 433 3.0 minutes. The total sleep time was 40.5 minutes. The wake after sleep onset time was 180 minutes and overall sleep efficiency was 9.4%. The latency to sleep onset was 210 minutes. The sleep architecture was characterized by 45.7% stage I, 54.3% stage II, 0% stage III, and 0% REM sleep. Obviously, based on the number of hours of sleep, this is a failed study Respiratory analysis The sleep study showed 14 obstructive events of which 14 were obstructive hypopneas and this is during the brief sleep time that the patient encountered during the sleep study that lasted only for 40.5 minutes. Based on those calc ulations, the AHI was 16.3. Nevertheless, as mentioned, this was a failed study Assessment Failed study due to inability to achieve adequate number of hours of sleep. Total sleeping time was less than 2 hours the patient continued to have difficulty sleeping during the testing. The patient failed the test due to insufficient sleep time. Plan In the pursuit of updating the patient's BiPAP unit, we need to reestablish diagnosis. Would suggest a home sleep study for this patient based on his current failed PSG.
== END 2023-06-23 05:40 | disposition home or self-care (01) ==
LOC: 3 N SLEEP 19:59
PROVIDERS: ATTEND Internal Medicine Critical Care Medicine
DX: G47.33 Obstructive sleep apnea (adult) (pediatric) (principal); F32.A Depression, unspecified; F41.9 Anxiety disorder, unspecified; I10 Essential (primary) hypertension; I48.20 Chronic atrial fibrillation, unspecified; J44.9 Chronic obstructive pulmonary disease, unspecified; F12.90 Cannabis use, unspecified, uncomplicated; F17.200 Nicotine dependence, unspecified, uncomplicated; Z87.39 Personal history of other diseases of the musculoskeletal system and connective tissue; Z79.899 Other long term (current) drug therapy; Z79.01 Long term (current) use of anticoagulants; Z88.7 Allergy status to serum and vaccine

== ENCOUNTER 2023-10-30 17:32 | Emergency (ER) | payer OTHER ==
[2023-10-30] MEDS: HYDROmorphone 1 MG/ML 1 ML SYRINGE IVP STA ×3 (17:35→18:42)
[2023-10-30 17:39] VITALS: BP 177/104; PULSE 86; RESP 22; TEMP 97.6
--- NOTE | 2023-10-30 17:47 | ED ---
General Adult HPI - General Chief complaint: Fall Stated complaint: Fall Time Seen by Provider: 10/30/23 17:33 Source: patient, RN notes reviewed, old records reviewed Mode of arrival: EMS Limitations: physical limitation - History of Present Illness Initial comments: 78-year-old male fall from roof, approximately 14 feet. Patient is a priority 2 trauma activation. Patient has pain isolated to the right posterior chest wall. Paramedics suspect multiple consecutive rib fractures. Patient is on Coumadin with history of atrial fibrillation. He denies abdominal pain. He was given 100 mcg of fentanyl during transport. Paramedics reports stable vital signs. Patient has significant pain in the right posterior chest wall. He was placed in a c-collar by paramedics. He denies head injury or loss of consciousness. - Related Data Home Medications Medication Instructions Recorded Confirmed Tamsulosin HCl [Flomax] 0.4 mg PO DAILY 03/30/15 12/30/22 hydrOXYzine HCL [Atarax] 25 mg PO HS 01/05/19 12/30/22 lisinopriL [Zestril] 10 mg PO QAM 09/06/20 12/30/22 Ibuprofen [Motrin Ib] 600 mg PO QAM 08/28/22 12/30/22 Warfarin [Coumadin] 2 mg PO SUMOTUWETHSA 08/28/22 12/30/22 Allergies Allergy/AdvReac Type Severity Reaction Status Date / Time pneumococcal vaccine Allergy Swelling Verified 12/30/22 10:57 AT SITE OF INJECTION Review of Systems ROS Statement: Those systems with pertinent positive or pertinent negative responses have been documented in the HPI. ROS Other: All systems not noted in ROS Statement are negative. 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 Past Anesthesia/Blood Transfusion Reactions: No Reported Reaction Additional Past Alcohol Use History / Comment(s): He started smoking at the age of 13 or 14yrs. QUIT 09/2018 SMOKED 1PPD He drinks 4-5 beers a day Additional Drug Use History / Comment(s): Pt states he smokes 2 joints a day. - Past Family History Brother(s) History Unknown: Yes Family Medical History: Cancer Additional Family Medical History / Comment(s): 2 brothers had cancer, 1 had esophageal cancer, unsure of what type other brother had, both . Mother Family Medical History: Renal Disease Additional Family Medical History / Comment(s): Mother at the age of 75yrs. General Exam Limitations: physical limitation General appearance: alert, in distress Head exam: Present: atraumatic, normocephalic Eye exam: Present: normal appearance, PERRL Respiratory exam: Present: chest wall tenderness (Chest right posterior chest wall crepitus) Cardiovascular Exam: Present: regular rate, irregular rhythm GI/Abdominal exam: Present: soft. Absent: distended, tenderness, guarding Back exam: Absent: vertebral tenderness Neurological exam: Present: alert, oriented X3, CN II-XII intact. Absent: motor sensory deficit Skin exam: Present: warm, dry, intact Course Vital Signs 10/30/23 17:36 Temperature 97.6 F Pulse Rate 86 Respiratory 22 Rate Blood Pressure 177/104 O2 Sat by Pulse 98 Oximetry Procedures - Chest Tube Insertion Consent Obtained: emergent situation Side of Procedure: right Indication: Hemothorax Placed on monitor/pulse oximetry: Yes Site Prep: Chloroprep Local Anesthesia: Lidocaine 1%, With Epi Amount (mLs): 5 Insertion Site: 5th Intercostal Space, Midaxillary Scalpel: #11 Open into Pleural Space Using: Trocar Tube Size (Italian): Other (24) Returns: Air, Blood Sutured in Place: Yes Type of Suture: Nylon Dressing Applied: Petroleum Gauze Attached to Suction: Yes Type of Suction: Pleuravac Medical Decision Making - Medical Decision Making Was pt. sent in by a medical professional or institution (, PA, COMMUNITY RESOURCE OFFICER, urgent care, hospital, or long-term...) When possible be specific @ -No Did you speak to anyone other than the patient for history (EMS, parent, family, police, friend...)? What history was obtained from this source @ -No Did you review nursing and triage notes (agree or disagree)? Why? @ -I reviewed and agree with nursing and triage notes Were old charts reviewed (outside hosp., previous admission, EMS record, old EKG, old radiological studies, urgent care reports/EKG's, long-term records)? Report findings @ -No old charts were reviewed Differential Diagnosis traumatic injury from the fall, pulmonary contusion, flail chest, intracranial hemorrhage, cervical fracture or subluxation, intra-ab dominal or intrathoracic trauma. EKG interpreted by me (3pts min.). @ -[A-fib rate of 90, QRS duration 81, QTc 407 X-rays interpreted by me (1pt min.). @Chest x-ray single view shows pulmonary contusion, innumerable rib fracture and small apical pneumothorax, pelvis x-ray is negative for displaced fracture or subluxation CT interpreted by me (1pt min.). @ -CT performed of the chest abdomen pelvis, brain and C-spine. Patient has flail chest on the right fracture of ribs 3 through rule 11 with both hemo and pneumothorax. U/S interpreted by me (1pt. min.). @ -[None done What testing was considered but not performed or refused? (CT, X-rays, U/S, labs)? Why? @ -None What meds were considered but not given or refused? Why? @ -None Did you discuss the management of the patient with other professionals (professionals i.e. , PA, COMMUNITY RESOURCE OFFICER, lab, RT, psych nurse, social service liaison, direct marketing coordinator, teacher, environmental technical officer, outsole caser)? Give summary @Dr. Cole covering for trauma, given the severity of injury recommends transfer at this time. Case discussed with trauma attending at [facility] Dr. Sanchez who will accept transfer Was smoking cessation discussed for >3mins.? @ -No Was critical care preformed (if so, how long)? @ -Yes, 35 minutes Were there social determinants of health that impacted care today? How? (Homelessness, low income, unemployed, alcoholism, drug addiction, transport ation, low edu. Level, literacy, decrease access to med. care, correction, rehab)? @ -No Was there de-escalation of care discussed even if they declined (Discuss DNR or withdrawal of care, Hospice)? DNR status @ -No What co-morbidities impacted this encounter? (DM, HTN, Smoking, COPD, CAD, Cancer, CVA, ARF, Chemo, Hep., AIDS, mental health diagnosis, sleep apnea, morbid obesity)? @ -[Atrial fibrillation on Coumadin Was patient admitted / discharged? Hospital course, mention meds given and route, prescriptions, significant lab abnormalities, going to OR and other pertinent info. @ -78-year-old male fell from roof, approximately 14 feet chief complaint right posterior rib pain difficulty breathing. Patient has flail chest on exam with crepitus throughout the chest wall upper back and neck. He does have air entry bilaterally. He has no abdominal pain or tenderness. CT performed of the chest abdomen pelvis as well as brain and C-spine. Patient has multiple rib fractures 3 through 11 with multiple segments being fractured consistent with flail chest. As well as hemopneumothorax. Chest tube is inserted in the right lateral chest wall. Patient will require transfer for higher level of care given the severity of his rib fractures. Undiagnosed new problem with uncertain prognosis? @ -No Drug Therapy requiring intensive monitoring for toxicity (Heparin, Nitro, Insulin, Cardizem)? @ -No Were any procedures done? @ -Yes, chest tube placement, Italian Diagnosis/symptom? @ -Flail chest, rib fracture, traumatic injury from fall Acute, or Chronic, or Acute on Chronic? @Acute Uncomplicated (without systemic symptoms) or Complicated (systemic symptoms)? @ -complicated Side effects of treatment? @ -No Exacerbation, Progression, or Severe Exacerbation? @ -No Poses a threat to life or bodily function? How? (Chest pain, USA, SD, pneumonia, PE, COPD, DKA, ARF, appy, cholecystitis, CVA, Diverticulitis, Homicidal, Suicidal, threat to staff... and all critical care pts) @Yes, rib fracture in the elderly, flail chest, respiratory failure, pneumohemothorax - Lab Data Result diagrams: 10/30/23 17:40 10/30/23 17:40 Lab Results 10/30/23 10/30/23 10/30/23 Range/Units 17:33 17:40 17:40 WBC 12.9 H (3.8-10.6) k/uL RBC 4.53 (4.30-5.90) m/uL Hgb 14.1 (13.0-17.5) gm/dL Hct 43.2 (39.0-53.0) % MCV 95.3 (80.0-100.0) fL MCH 31.1 (25.0-35.0) pg MCHC 32.6 (31.0-37.0) g/dL RDW 12.8 (11.5-15.5) % Plt Count 178 (150-450) k/uL MPV 9.2 Neutrophils % 77 % Lymphocytes % 16 % Monocytes % 4 % Eosinophils % 2 % Basophils % 1 % Neutrophils # 9.9 H (1.3-7.7) k/uL Lymphocytes # 2.1 (1.0-4.8) k/uL Monocytes # 0.5 (0-1.0) k/uL Eosinophils # 0.2 (0-0.7) k/uL Basophils # 0.1 (0-0.2) k/uL PT 19.6 H (10.0-12.5) sec INR 1.9 H (<1.2) APTT 28.4 (22.0-30.0) sec Sodium (137-145) mmol/L Potassium (3.5-5.1) mmol/L Chloride (98-107) mmol/L Carbon Dioxide (22-30) mmol/L Anion Gap mmol/L BUN (9-20) mg/dL Creatinine (0.66-1.25) mg/dL Est GFR (CKD-EPI)AfAm (>60 ml/min/1.73 sqM) Est GFR (CKD-EPI)NonAf (>60 ml/min/1.73 sqM) Glucose (74-99) mg/dL Calcium (8.4-10.2) mg/dL Total Bilirubin (0.2-1.3) mg/dL AST (17-59) U/L ALT (4-49) U/L Alkaline Phosphatase (38-126) U/L Troponin I (0.000-0.034) ng/mL Total Protein (6.3-8.2) g/dL Albumin (3.5-5.0) g/dL Serum Alcohol mg/dL Blood Type Blood Type Confirm Blood Type Recheck No Previous Record Bld Type Recheck Status CABO Indicated Antibody Screen Spec Expiration Date 11/02/2023 - 2333 10/30/23 10/30/23 10/30/23 Range/Units 17:40 17:40 17:40 WBC (3.8-10.6) k/uL RBC (4.30-5.90) m/uL Hgb (13.0-17.5) gm/dL Hct (39.0-53.0) % MCV (80.0-100.0) fL MCH (25.0-35.0) pg MCHC (31.0-37.0) g/dL RDW (11.5-15.5) % Plt Count (150-450) k/uL MPV Neutrophils % % Lymphocytes % % Monocytes % % Eosinophils % % Basophils % % Neutrophils # (1.3-7.7) k/uL Lymphocytes # (1.0-4.8) k/uL Monocytes # (0-1.0) k/uL Eosinophils # (0-0.7) k/uL Basophils # (0-0.2) k/uL PT (10.0-12.5) sec INR (<1.2) APTT (22.0-30.0) sec Sodium 135 L (137-145) mmol/L Potassium 4.5 (3.5-5.1) mmol/L Chloride 100 (98-107) mmol/L Carbon Dioxide 28 (22-30) mmol/L Anion Gap 7 mmol/L BUN 22 H (9-20) mg/dL Creatinine 0.97 (0.66-1.25) mg/dL Est GFR (CKD-EPI)AfAm 87 (>60 ml/min/1.73 sqM) Est GFR (CKD-EPI)NonAf 75 (>60 ml/min/1.73 sqM) Glucose 114 H (74-99) mg/dL Calcium 9.4 (8.4-10.2) mg/dL Total Bilirubin 1.0 (0.2-1.3) mg/dL AST 50 (17-59) U/L ALT 35 (4-49) U/L Alkaline Phosphatase 96 (38-126) U/L Troponin I <0.012 (0.000-0.034) ng/mL Total Protein 7.1 (6.3-8.2) g/dL Albumin 3.9 (3.5-5.0) g/dL Serum Alcohol <10 mg/dL Blood Type O Positive Blood Type Confirm Blood Type Recheck Bld Type Recheck Status Antibody Screen NEGATIVE Spec Expiration Date 10/30/23 Range/Units 17:42 WBC (3.8-10.6) k/uL RBC (4.30-5.90) m/uL Hgb (13.0-17.5) gm/dL Hct (39.0-53.0) % MCV (80.0-100.0) fL MCH (25.0-35.0) pg MCHC (31.0-37.0) g/dL RDW (11.5-15.5) % Plt Count (150-450) k/uL MPV Neutrophils % % Lymphocytes % % Monocytes % % Eosinophils % % Basophils % % Neutrophils # (1.3-7.7) k/uL Lymphocytes # (1.0-4.8) k/uL Monocytes # (0-1.0) k/uL Eosinophils # (0-0.7) k/uL Basophils # (0-0.2) k/uL PT (10.0-12.5) sec INR (<1.2) APTT (22.0-30.0) sec Sodium (137-145) mmol/L Potassium (3.5-5.1) mmol/L Chloride (98-107) mmol/L Carbon Dioxide (22-30) mmol/L Anion Gap mmol/L BUN (9-20) mg/dL Creatinine (0.66-1.25) mg/dL Est GFR (CKD-EPI)AfAm (>60 ml/min/1.73 sqM) Est GFR (CKD-EPI)NonAf (>60 ml/min/1.73 sqM) Glucose (74-99) mg/dL Calcium (8.4-10.2) mg/dL Total Bilirubin (0.2-1.3) mg/dL AST (17-59) U/L ALT (4-49) U/L Alkaline Phosphatase (38-126) U/L Troponin I (0.000-0.034) ng/mL Total Protein (6.3-8.2) g/dL Albumin (3.5-5.0) g/dL Serum Alcohol mg/dL Blood Type Blood Type Confirm O Positive Blood Type Recheck Bld Type Recheck Status Antibody Screen Spec Expiration Date Critical Care Time Critical Care Time: Yes Total Critical Care Time: 35 Disposition Clinical Impression: Flail chest, Multiple rib fractures, Fall Disposition: OTHER INSTITUTION NOT DEFINED Condition: Serious Is patient prescribed a controlled substance at d/c from ED?: No Referrals: [facility],Clinic [Primary Care Provider] - 1-2 days Time of Disposition: 18:57 - Out of Hospital Transfer - Req. Specs Out of Hospital Transfer - Requested Specifics: Other Emergency Center (Transfer to [place] recoded)
[2023-10-30 17:57] LABS: Basophils # (A) 0.1 k/uL (0-0.2); Basophils % (A) 1 %; Eosinophils # (A) 0.2 k/uL (0-0.7); Eosinophils % (A) 2 %; HCT 43.2 % (39.0-53.0); HGB 14.1 gm/dL (13.0-17.5); Lymphocytes # (A) 2.1 k/uL (1.0-4.8); Lymphocytes % (A) 16 %; MCH 31.1 pg (25.0-35.0); MCHC 32.6 g/dL (31.0-37.0); MCV 95.3 fL (80.0-100.0); Mean Platelet Volume 9.2; Monocytes # (A) 0.5 k/uL (0-1.0); Monocytes % (A) 4 %; Neutrophils # (A) 9.9 k/uL (1.3-7.7); Neutrophils % (A) 77 %; Platelet Count 178 k/uL (150-450); RBC 4.53 m/uL (4.30-5.90); RDW 12.8 % (11.5-15.5); WBC 12.9 k/uL (3.8-10.6)
--- NOTE | 2023-10-30 18:05 | XR ---
EXAMINATION TYPE: XR pelvis AP view DATE OF EXAM: 10/30/2023 COMPARISON: 04/11/2019 HISTORY: Trauma fall from roof TECHNIQUE: AP pelvis FINDINGS: Femoral heads articulate with the acetabulum. Symphysis pubis and sacroiliac joints are nor mal. No acute pelvic fractures evident. Proximal femurs within the [id number] are normal. Some deg enerative disc changes within the lower lumbar spine. Bowel gas present. IMPRESSION: 1. No acute posttraumatic changes AP pelvis [facility], , 10/30/2023 6:03 PM
[2023-10-30 18:08] LABS: ALT 35 U/L (4-49); AST 50 U/L (17-59); African American GFR (CKD) 87 (>60 ml/min/1.73 sqM); Albumin 3.9 g/dL (3.5-5.0); Alcohol <10 mg/dL; Alkaline Phosphatase 96 U/L (38-126); Anion Gap 7 mmol/L; Blood Urea Nitrogen 22 mg/dL (9-20); Calcium 9.4 mg/dL (8.4-10.2); Carbon Dioxide 28 mmol/L (22-30); Chloride 100 mmol/L (98-107); Glucose 114 mg/dL (74-99); Non-African American GFR(CKD) 75 (>60 ml/min/1.73 sqM); Potassium 4.5 mmol/L (3.5-5.1); Sodium 135 mmol/L (137-145); Total Protein 7.1 g/dL (6.3-8.2)
--- NOTE | 2023-10-30 18:10 | XR ---
EXAMINATION TYPE: XR chest 1V portable DATE OF EXAM: 10/30/2023 COMPARISON: 08/28/2022 INDICATION: Fall from roof TECHNIQUE: Single frontal view of the chest is obtained. FINDINGS: The heart size is normal. The pulmonary vasculature is normal. Mild increased lung markings on the right. Consider pulmonary contusion and atelectasis. Minimal pneumothorax is evident. A larger pneumothorax may not be well appreciated in the supine view . However, there is subcutaneous air along the lateral lower thorax suggesting underlying pneumothora x. Multiple lateral right rib fractures are present including suspected fractures along the lateral righ t third through eighth ribs. Second fracture may be present along the posterior left third riba. Flai l chest is not identified. Mediastinum appears normal. IMPRESSION: 1. Small pneumothorax visualized. 2. Multiple right-sided rib fractures. 3. Pulmonary contusion versus atelectasis right lung [facility], , 10/30/2023 6:08 PM
--- NOTE | 2023-10-30 18:20 | CT ---
CT cervical spine. COMPARISON: None CT of the cervical spine is performed in the axial plane at 2 mm thick sections. Reconstructed image s in the coronal, and sagittal plane are reviewed on the computer. No acute fractures are evident. There is a cervical kyphosis centered at C4. Diffuse loss of disc height is present through the cervical spine from C3-4 through C6-7. Vertebral body heights are preserved. No spinal canal stenosis is evident. Uncovertebral junctions have moderate to severe bilateral foraminal stenosis C4-5, C5-6, C6-7. Notice made of subcutaneous air within the posterior lateral right neck likely related to patient's p neumothorax Note is made of a posterior right fifth rib fracture. Additional fractures from chest x-ray from the [id number]. There may be some compressive atelectasis within the dependent lung bases. IMPRESSION: 1. Degenerative disc changes mid cervical spine. 2. Bilateral foraminal stenosis from degenerative uncovertebral joint changes. 3. Fracture of the posterior right fifth rib. 4. Compressive atelectasis dependent right lung. A minimal sliver of posterior pneumothorax present. 5. Acute fractures of the cervical spine identified. 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 [facility], , 10/30/2023 6:18 PM
[2023-10-30 18:24] LABS: INR 1.9 (<1.2); Partial Thromboplastin Time 28.4 sec (22.0-30.0); Prothrombin Time 19.6 sec (10.0-12.5)
[2023-10-30] MEDS: KETAMINE 10 MG/ML 20 ML VIAL IV ONE (18:24)
[2023-10-30] MEDS: LIDOCAINE 2%-EPI 1:100,000 20 ML VIAL SQ STA (18:30)
--- NOTE | 2023-10-30 18:37 | CT ---
EXAMINATION TYPE: CT ChestAbdPelvis w con DATE OF EXAM: 10/30/2023 COMPARISON: None INDICATION: trauma, fell off roof DLP: 1135.7 mGycm, Automated exposure control for dose reduction was used. CONTRAST: None CT of the brain is performed utilizing 3 mm thick sections through the posterior fossa and 3 mm thick sections through the remaining calvarium. Study is performed within 24 hours of arrival to the hosp [facility]. No abnormal hyperdensity is present to suggest an acute intracranial hemorrhage. No mass lesion is evident. No acute infarcts are evident. Periventricular white matter hypodensity is present, likely on the bas is of chronic white matter ischemic changes. Lacunar infarcts within the left cabello radiata. Small p eripheral right basal ganglia lacunar infarct or Virchow-John space. Ventricles and sulci are prominent for the patient age. Paranasal sinuses and mastoid air cells within the [id number] are clear. IMPRESSION: 1. No acute intracranial process. Follow up MRI can be performed as clinically indicated. 2. Old lacunar infarcts discussed above. 3. Atrophy EXAMINATION TYPE: CT ChestAbdPelvis w con DATE OF EXAM: 10/30/2023 INDICATION: trauma, fell off roof COMPARISON: None CT DLP: 1135.7 mGycm CONTRAST: Performed without Oral Contrast and with IV Contrast, patient injected with 100 ml mL of Isovue 370. TECHNIQUE: Axial images at 5 mm thick sections. Reconstructed images in the coronal plane. Delayed images through the kidneys. FINDINGS: CT CHEST: Multiple right-sided rib fractures are present extending from the third rib to the 11th rib laterally. Couple of posterior noncontiguous posterior rib fractures are also present including ribs 3, rib 5. There appears to be a flail chest on the right with posterior and lateral rib fractures of 8-11. Portion of the thyroid visualized is normal. The right thorax and pleural fluid has may be pneumothorax. Compressive atelectasis may be present. C ontusion could be considered. No enlarged mediastinal or hilar adenopathy is evident. No suspicious fluid within the mediastinum is evident. The ascending aorta diameter at the level of the main pulmonary artery is 3.7 cm. The main pulmonary artery diameter at the bifurcation is 2.[address] ABDOMEN: No suspicious or aspiration. Liver: Normal Spleen: Normal Pancreas: Normal Adrenal glands: The adrenal glands are normal. Gallbladder: Normal Kidneys: No masses are evident. No hydronephrosis is present. No cysts are present. Delayed images were obtained through the kidneys, which remain unremarkable. Aorta: Vascular calcification is within the aorta. Inferior vena cava: Normal. CT PELVIS: No free air is in the abdomen or pelvis. Loops of bowel within the abdomen and pelvis are normal. Study is lateral contrast limiting bowel evaluation. Appendix: Not visualized. No suspicious inflammatory changes are dilated tubular structure is evident . Urinary bladder: Normal. Genitourinary structures: Prostate is prominent. Osseous structures: There is a sclerotic lesion along the medial right iliac wing. Old compression de formities superior endplate of T12-L1 are present, present 2016. Degenerative disc disease with loss of disc height L23 and L5-S1. IMPRESSION: 1. Flail chest extending from right posterior lateral rib fractures 8 through 11. 2. Small pneumothorax. 3. Small right hemothorax. Some pulmonary contusion or compressive atelectasis may be present. [facility], , 10/30/2023 6:34 PM
--- NOTE | 2023-10-30 19:13 | XR ---
EXAMINATION TYPE: XR chest 1V portable DATE OF EXAM: 10/30/2023 COMPARISON: 10/30/2023 earlier exam INDICATION: Pneumothorax, chest tube placement TECHNIQUE: Single frontal view of the chest is obtained supine view. FINDINGS: The heart size is normal. The pulmonary vasculature is normal. Mild diffuse increased lung markings are present in the right lung. This is worsening over the interv al. Tiny right apical pneumothorax is evident. There is interval placement of a chest tube at the right b ase. Increasing subcutaneous emphysema is along lateral right chest. Multiple right-sided rib fractur es are evident. IMPRESSION: 1. Small right apical pneumothorax. 2. Multiple right-sided rib fractures. 3. Placement of a right basilar chest tube [facility], , 10/30/2023 7:11 PM
[2023-10-30] MEDS: HYDROmorphone 0.5 MG/0.5 ML SYRINGE IVP STA ×2 (19:20→19:48)
== END 2023-10-30 19:52 | disposition other institution (70) ==
LOC: EC 17:32
CPT/HCPCS: 32551; 36415; 70450; 71045; 71260; 72125; 72170; 74177; 80053; 80320; 84484; 85025; 85610; 85730; 86850; 86900; 86901; 93005; 96374; 96375; 96376; 99291

== ENCOUNTER 2024-04-21 09:23 | Day surgery (SDC) | payer OTHER ==
[2024-04-19 13:04] VITALS: BMI 20.5
[2024-04-21] MEDS: IV FLUID CONTINUATION 1,000 ML IV ONE (10:00)
[2024-04-21] MEDS ORDERED: SODIUM CHLORIDE 0.9% 1,000 ML IV SCH (10:00)
[2024-04-21 10:03] VITALS: TEMP 98.2
[2024-04-21] MEDS: BENZOCAINE SPRAY 1 EACH MM ONE ×2 (11:11→11:18)
[2024-04-21] MEDS: fentaNYL (PF) 50 MCG/ML 2 ML AMP IVP ONE (11:26)
[2024-04-21] MEDS: MIDAZOLAM 2 MG/2 ML VIAL IVP ONE (11:26)
[2024-04-21 11:40] VITALS: RESP 16
--- NOTE | 2024-04-21 12:12 | ECHOT ---
TRANSESOPHAGEAL ECHOCARDIOGRAM INDICATIONS: Mitral regurgitation. PROCEDURE NOTE: After obtaining informed consent, transesophageal echocardiogram was performed in the left lateral position using an Omniplane probe. Local and IV sedation were obtained with xylocaine spray, Versed and fentanyl Total sedation time was 10 minutes. The patient tolerated the procedure well without any obvious immediate complications. FINDINGS: 1. Mitral valve appears anatomically normal. There is mild to moderate central mitral regurgitation noted. There is moderate tricuspid regurgitation noted. There is severe dilatation of both atria. 2. Left ventricle has normal size and systolic function. Aortic root appears mildly dilated. Interatrial septum appears aneurysmal. There is no evidence of left-to- right shunt by color-flow Doppler or [id number]-mi-[id number] shunt by agitated saline contrast study. CONCLUSIONS: Mild to moderate mitral regurgitation. Severe biatrial enlargement. Normal LV function. MMODL / IJN: [id number] /
[2024-04-21 12:42] VITALS: BP 157/95; PULSE 78
== END 2024-04-21 12:52 | disposition home or self-care (01) ==
LOC: CATHCVL 09:23
PROVIDERS: ATTEND Internal Medicine Cardiovascular Disease
DX: I34.0 Nonrheumatic mitral (valve) insufficiency (principal); I48.19 Other persistent atrial fibrillation; I10 Essential (primary) hypertension; F17.210 Nicotine dependence, cigarettes, uncomplicated; Z79.51 Long term (current) use of inhaled steroids; Z79.899 Other long term (current) drug therapy
CPT/HCPCS: 93312; 93320; 93325; 99152; J2250; J3010

== ENCOUNTER → 2024-05-02 | Outpatient (CLI) | payer OTHER ==
--- NOTE | 2024-05-03 23:05 | P.PCN ---
Date of Procedure: 05/02/24 Operative Findings: This is a 77-year-old male patient with known history of COPD and obstructive sleep apnea. The patient has an FEV1 of 56% of predicted. In regards to obstructive sleep apnea, the patient is being treated with a [employer] BiPAP unit which is set at a pressure of 14 over 10 cm of water and the patient was using an AirFit F20 fullface mask. [facility] The patient wanted to update his BiPAP unit and for that reason a polysomnography was ordered. Comorbid conditions include hypertension, chronic A-fib, COPD, chronic anxiety/depression, cannabis use and the patient smokes around 1-2 joints on a daily basis along with a history of osteoarthritis. The patient underwent a screening polysomnography on 06/28/2023. The study failed as the patient was unable to achieve adequate number of hours of sleep and based on that and home sleep study was ordered Pertinent physical findings Weight is 196 pounds with a BMI of 21.3 Technical description The [employer] system was used to complete his home sleep study. This is a type III home sleep study evaluation. Total recording duration was 8 hours and 18 minutes. The study started at 10:26 PM and ended at 6:45 AM. There was a total of 6 hours and 33 minutes of flow monitoring and 7 hours and 45 minutes of oxygen saturation monitoring. This is an adequate study Results Respiratory analysis showed a total of 76 obstructive apneas and 75 obstructive hypopneas. The resulting AHI was 23 consistent with moderately severe NA. The central apnea index was 1.8. Oxygenation analysis The baseline pulse ox while the patient was awake was 95%. Average pulse ox during sleep was 91% and the patient had a minimum pulse ox of 75%. The patient spent approximately 1 hours and 19 minutes of sleep time below pulse ox of 89%. Cardiac summary Average heart rate was 86 with a minimum heart rate of 42 and a maximum heart rate of 181 Assessment Obstructive sleep apnea, moderate in severity with an AHI of 23 Chronic A-fib COPD with an FEV1 of 56% predicted Chronic anxiety/depression Cannabis use Osteoarthritis Plan The patient is going to be offered an APAP machine which will be set at a pressure minimum of 5 and a maximum of 15 and the patient will be given an AirFit F20 fullface mask Will do further adjustments on the CPAP pressures and mask interface based on the patient's clinical response and tolerability. Will avoid an in lab CPAP titration as the patient's sleep efficiency has been quite poor and is unable to achieve adequate number of hours of sleep in the sleep lab. Will proceed with APAP machine and subsequent follow-up is to be done on this patient regarding treatment success.
== END ==
LOC: 3 N SLEEP 13:29
PROVIDERS: ATTEND Internal Medicine Critical Care Medicine
DX: G47.33 Obstructive sleep apnea (adult) (pediatric) (principal); I48.20 Chronic atrial fibrillation, unspecified; J44.9 Chronic obstructive pulmonary disease, unspecified; M19.90 Unspecified osteoarthritis, unspecified site; F32.A Depression, unspecified; F41.9 Anxiety disorder, unspecified; F12.90 Cannabis use, unspecified, uncomplicated; Z87.891 Personal history of nicotine dependence; Z88.7 Allergy status to serum and vaccine